=== PATIENT | female | born 1970 | race Caucasian/White ===

== ENCOUNTER → 2019-03-29 16:54 | Outpatient (BNVA) | payer SELFPAY | PROVIDERS: Family Provider Family Medicine; PCP Family Medicine; Referring Provider Nurse Practitioner; Visit Provider Nurse Practitioner | DX: Z76.89 Persons encountering health services in other specified circumstances (principal); E03.9 Hypothyroidism, unspecified | CPT/HCPCS: 84443 ==

== ENCOUNTER 2019-06-18 08:50 | Emergency (ER) | payer SELFPAY ==
[2019-06-18 08:57] VITALS: BP 162/96; PULSE 92; RESP 20; TEMP 36.4; O2SAT 96; BMI 31.3
[2019-06-18 09:09] VITALS: O2SAT 96
--- NOTE | 2019-06-18 09:10 | W.ED.URI ---
HPI - URI/Sore Throat General: Chief Complaint: Upper Respiratory Infection Stated Complaint: COUGH, CONGESTED Time Seen by Provider: 06/18/19 08:52 Source: patient Mode of arrival: ambulatory Limitations: no limitations History of Present Illness: HPI Narrative: Patient is a 48-year-old female who presents to ED today with complaints of cough and congestion over the past few days. Patient states she has a history of asthma and COPD and continues to smoke daily. She states she will get episodes like this annually. Patient is not been running fevers. She has not had any sick contacts or recent travel. MD elicited complaint: cough Pertinent past history: COPD and asthma Onset (ago): day(s) Consistency: constant Severity: mild Description of mucous: clear and yellow Able to tolerate fluids by mouth: Yes Exacerbating factors: nothing Relieving factors: nothing Associated symptoms: Reports no associated symptoms; Deny abdominal pain, chills, chest pain, fever(s), headache(s), nausea or vomiting Treatments prior to arrival: none Review of Systems General: Reports: 10 or more systems reviewed and unremarkable except in HPI and below Const: Denies: fever, chills or body aches Eyes: Denies: change in vision, blurry vision or photophobia Card: Denies: chest pain, palpitations, irregular heart rhythm, edema, swelling of feet/ankles, lightheadedness, syncope, pre-syncope or shortness of breath when lying down Resp: Reports: productive cough and chest congestion; Denies: shortness of breath, non-productive cough, pain on inspiration, change in phlegm color or coughing up blood GI: Denies: abdominal pain, nausea or vomiting Musc: Denies: neck pain or back pain Neuro: Denies: headache PFSH ED PFSH: Social History Smoking and tobacco status: current every day smoker Alcohol intake: never Female Reproductive History: Date of last menstrual period: 02/05/19 Para: 2 Physical Exam Const: COMMON NORMALS: no apparent distress, average body habitus, oriented x3, no limitations, healthy appearing, alert and well nourished HENMT: COMMON NORMALS: normocephalic, head/scalp atraumatic, hearing grossly normal bilaterally, external ears normal, EAC's normal, TM's normal bilaterally, external nose normal, nasal mucous membranes and turbinates normal, moist oral mucous membranes and oropharynx normal HEAD & SCALP: normocephalic and atraumatic FACE & SINUS: normal facial exam and sinuses nontender NOSE: external nose normal and nasal mucous membranes and turbinates normal EXTERNAL EAR: Yes external ears normal EXTERNAL AUDITORY CANAL: EAC's normal TYMPANIC MEMBRANE: TM's normal bilaterally THROAT: posterior oropharynx normal, tonsils normal and uvula midline Eye: COMMON NORMALS: PERRL, EOMs intact bilaterally and conjunctivae normal CONJUNCTIVA: Yes conjunctivae normal PUPIL: Yes PERRL Neck/C-Spine: COMMON NORMALS: no lymphadenopathy Resp: COMMON NORMALS: normal respiratory effort EFFORT & INSPECTION: Yes audible wheezes (SOULEYMANE, LLL, RLL; cleared after duo neb tx) Cardio: COMMON NORMALS: regular rate and regular rhythm RATE: regular rate RHYTHM: regular rhythm Extremity: COMMON NORMALS: normal to inspection Neuro: COMMON NORMALS: oriented x3 SENSORIUM/ORIENTATION: Yes alert Skin: COMMON NORMALS: no rashes or lesions noted GENERAL SKIN EXAM: no rashes or lesions noted Course Vital Signs: Vital signs: Vital Signs Temperature 97.6 F 06/18/19 08:57 Pulse Rate 88 06/18/19 09:41 Respiratory Rate 16 06/18/19 09:39 Blood Pressure 162/96 06/18/19 08:57 Pulse Oximetry 97 06/18/19 09:39 MDM - URI/Sore Throat Imaging Data^: CXR: Radiologist's impression: [address] [address] XRay Report Signed Patient: Katerina Wilkinson Unit #: [id number] : 1970 Age/Sex: 48 / F ADM Date: 06/18/19 Loc: ER Room/Bed: Attending Dr: Ordering Provider/Ordering MD: Eva Mckeon Date of Service: 06/18/19 Procedure(s): XR chest 1V portable [id number] Accession Number(s): [id number] Report Number: [id number] PROCEDURE INFORMATION: Exam: XR Chest, 1 View Exam date and time: 06/18/2019 9:38 AM Age: 48 years old Clinical indication: Cough; Additional info: Cough/congestion TECHNIQUE: Imaging protocol: XR of the chest Views: 1 view. COMPARISON: CR Chest 2 views* [id number] 11/29/2018 3:58 PM FINDINGS: Lungs: Unremarkable. No consolidation. Pleural space: Unremarkable. No pleural effusion. No pneumothorax. Heart/Mediastinum: Unremarkable. No cardiomegaly. Bones/joints: Unremarkable. XR/XR chest 1V portable [id number] IMPRESSION: No acute findings. Dictated By: Valente Meraz MD Signed By: Valente Meraz MD Signed Date/Time: 06/18/19950 DD/ Discharge Plan Discharge Patient Disposition: Home, Self-Care Clinical Impression: Bronchitis Condition: Stable Prescriptions: New prednisone 10 mg tablet 60 mg PO DAILY 5 Days Qty: 30 RF: 0 albuterol sulfate 1.25 mg/3 mL solution for nebulization 1.25 mg INHALATION Q6H PRN (Reason: shortness of breath or wheezing) Qty: 75 RF: 0 doxycycline monohydrate 100 mg capsule 100 mg PO Q12H 10 Days Qty: 20 RF: 0 No Action levothyroxine 150 mcg capsule 150 mcg PO DAILY Qty: 30 RF: 1 Discharge Orders: Discharge Order (Routine); Ordered 06/18/19 Ordered By: Eva Mckeon Referrals: Zita Flores FNP [Primary Care Provider] - Jeane Cee DO [Family Provider] - Discharge Diet: Usual diet Discharge Activity: Increase activity as tolerated Coding Level of Care Code ED Hospital Sales Representative for Chg Jamar
--- NOTE | 2019-06-18 09:19 | XRR_ITS ---
PROCEDURE INFORMATION: Exam: XR Chest, 1 View Exam date and time: 06/18/2019 9:38 AM Age: 48 years old Clinical indication: Cough; Additional info: Cough/congestion TECHNIQUE: Imaging protocol: XR of the chest Views: 1 view. COMPARISON: CR Chest 2 views* [id number] 11/29/2018 3:58 PM FINDINGS: Lungs: Unremarkable. No consolidation. Pleural space: Unremarkable. No pleural effusion. No pneumothorax. Heart/Mediastinum: Unremarkable. No cardiomegaly. Bones/joints: Unremarkable. XR/XR chest 1V portable [id number] IMPRESSION: No acute findings.
[2019-06-18] MEDS: ipratropium-albuterol 3 mL Neb INHALATION (09:38)
[2019-06-18 09:39] VITALS: PULSE 87; RESP 16; O2SAT 97
[2019-06-18 09:41] VITALS: PULSE 88
[2019-06-18 10:30] VITALS: BP 125/79; PULSE 80; O2SAT 99
== END 2019-06-18 10:30 | disposition home or self-care (01) ==
PROVIDERS: Emergency Provider Physician Assistant; Family Provider Family Medicine; PCP Nurse Practitioner
DX: J44.9 Chronic obstructive pulmonary disease, unspecified (principal); J40 Bronchitis, not specified as acute or chronic; F17.200 Nicotine dependence, unspecified, uncomplicated
CPT/HCPCS: 12345; 71045; 94640; 99281; 99283

== ENCOUNTER 2019-07-09 07:03 | Emergency (ER) | payer SELFPAY ==
[2019-07-09 07:08] VITALS: BMI 31.3
[2019-07-09 07:11] VITALS: BP 142/87; PULSE 88; RESP 18; TEMP 36.6; O2SAT 96
--- NOTE | 2019-07-09 07:22 | W.ED.SOB ---
HPI - SOB/Dyspnea General: Chief Complaint: Shortness of Breath/Dyspnea Stated Complaint: SOB Time Seen by Provider: 07/09/19 07:16 Source: patient Mode of arrival: ambulatory Limitations: no limitations History of Present Illness: HPI Narrative: Patient presents with wheezing and mild shortness of breath. Patient has COPD and has ran out of her albuterol solution. Patient appears in mild shortness of breath. Patient appears well. Patient appears in no acute distress. Review of Systems General: Reports: 10 or more systems reviewed and unremarkable except in HPI and below Resp: Reports: shortness of breath and wheezing PFS ED PFSH: Social History Smoking and tobacco status: former smoker Alcohol intake: never Female Reproductive History: Date of last menstrual period: 02/05/19 Para: 2 Physical Exam Const: COMMON NORMALS: no apparent distress and oriented x3 GENERAL APPEARANCE: cooperative HENMT: COMMON NORMALS: normocephalic, TM's normal bilaterally and external nose normal HEAD & SCALP: normal to inspection and normocephalic NOSE: external nose normal TYMPANIC MEMBRANE: TM's normal bilaterally MOUTH: oral and palatal mucosa normal THROAT: posterior oropharynx normal Eye: GENERAL EYE: normal appearance of both eyes Neck/C-Spine: COMMON NORMALS: full ROM Lymph: LYMPHATIC: no lymphadenopathy noted Chest: COMMONS NORMALS: inspection of chest normal Resp: EFFORT & INSPECTION: Yes able to speak in complete sentences and Yes uses accessory muscles AUSCULTATION: wheezes Cardio: COMMON NORMALS: regular rate and regular rhythm RATE: regular rate RHYTHM: regular rhythm GI: COMMON NORMALS: non-tender : COMMON NORMALS: Yes no CVA tenderness BLADDER/KIDNEY EXAM: Yes no CVA tenderness Back/Pelvis: COMMON NORMALS: no CVA tenderness and thoracic and lumbar spine normal to inspection Extremity: COMMON NORMALS: normal to inspection Neuro: COMMON NORMALS: oriented x3 and moves all extremities Psych: COMMON NORMALS: mental status grossly normal and cooperative Skin: COMMON NORMALS: no rashes or lesions noted GENERAL SKIN EXAM: no rashes or lesions noted Course Vital Signs: Vital signs: Vital Signs Temperature 97.8 F 07/09/19 07:11 Pulse Rate 103 H 07/09/19 07:49 Respiratory Rate 20 H 07/09/19 07:44 Blood Pressure 142/87 07/09/19 07:11 Pulse Oximetry 97 07/09/19 07:44 MDM - SOB/Dyspnea MDM Narrative: Medical decision making narrative: Patient comes in today for shortness of breath. Patient usually is able to control any breathing difficulty with albuterol nebulizer solutions. Patient has been without the medication for about 2 days now. Patient appears well. Patient does have wheezing throughout lung garcia. Vital signs were normal. Differential diagnosis includes pneumonia, asthma, COPD. Patient had improvement after treatment with albuterol and ipratropium. Patient was given injection of dexamethasone, will continue with breathing treatment and cover for antibiotic with cephalexin. Patient will also be given a burst of steroid. Reviewed with patient plan with her statement of understanding. Discharge Plan Discharge Patient Disposition: Home, Self-Care Clinical Impression: Acute exacerbation of chronic obstructive airways disease Condition: Stable Prescriptions: New albuterol sulfate 2.5 mg /3 mL (0.083 %) solution for nebulization 2.5 mg INHALATION Q4H PRN (Reason: shortness of breath or wheezing) Qty: 180 RF: 6 ipratropium-albuterol 0.5 mg-3 mg(2.5 mg base)/3 mL solution for nebulization 3 ml INHALATION QID Qty: 180 RF: 6 cephalexin 500 mg capsule 500 mg PO TID 7 Days Qty: 21 RF: 0 prednisone 20 mg tablet 20 mg PO DAILY Qty: 5 RF: 0 No Action levothyroxine 150 mcg capsule 150 mcg PO DAILY Qty: 30 RF: 1 albuterol sulfate 1.25 mg/3 mL solution for nebulization 1.25 mg INHALATION Q6H PRN (Reason: shortness of breath or wheezing) Qty: 75 RF: 0 Referrals: Zita Flores FNP [Primary Care Provider] - Jeane Cee DO [Family Provider] - Discharge Diet: Usual diet Discharge Activity: Increase activity as tolerated Patient Instructions: Chronic Obstructive Pulmonary Disease (ED) Activity Restrictions/Additional Instructions: Drink plenty of water with medications. Use albuterol with ipratropium 4 times a day routinely and tell improvement in symptoms and then use twice daily. Use albuterol as needed for breakthrough wheezing or difficulty breathing. Take cephalexin and prednisone as directed. Continue cessation of smoking. Follow-up with primary care in 1 week. Return to the ER for worsening symptoms or high fever. Coding Level of Care Code ED Branding Machine Tender for Chg Fwd Exam Comprehensive
[2019-07-09] MEDS: ipratropium-albuterol 3 mL Neb INHALATION (07:43)
[2019-07-09 07:44] VITALS: PULSE 81; RESP 20; O2SAT 97
[2019-07-09 07:49] VITALS: PULSE 103
[2019-07-09] MEDS: dexamethasone 10 mg/mL INJ IM (07:54)
[2019-07-09 08:25] VITALS: BP 145/75; PULSE 97; RESP 16; O2SAT 98
== END 2019-07-09 08:26 | disposition home or self-care (01) ==
PROVIDERS: Emergency Provider Nurse Practitioner Family; Family Provider Family Medicine; PCP Nurse Practitioner
DX: J44.1 Chronic obstructive pulmonary disease with (acute) exacerbation (principal); Z87.891 Personal history of nicotine dependence
CPT/HCPCS: 12345; 94640; 96372; 99281; 99283; J1100

== ENCOUNTER 2019-08-01 16:39 | Emergency (ER) | payer SELFPAY ==
--- NOTE | 2019-08-01 16:43 | XR_ITS ---
WS: [id number] CHEST 2 VIEWS HISTORY: sob COMPARISON: 06/18/2019 Lungs: Hyperinflated lungs with changes of mild emphysema. No pneumonia. Normal vasculature. Cardiac size: Normal. Mediastinum/Aorta: Normal mediastinum. Bones: Normal. XR/XR chest 2V* [id number] IMPRESSION: Mild chronic emphysema.
[2019-08-01 16:50] VITALS: BP 161/78; PULSE 95; RESP 18; TEMP 36.4; O2SAT 100; BMI 31.3
--- NOTE | 2019-08-01 16:55 | W.ED.GENADLT ---
HPI - General Adult General: Chief complaint: General Medical Stated complaint: sob/cough Time Seen by Provider: 08/01/19 16:43 Source: patient Mode of arrival: ambulatory Limitations: no limitations History of Present Illness: HPI narrative: 48-year-old female with a history of COPD and was a former smoker. She states she has had bronchitis-like symptoms over the last month. She states she has been on 2 rounds of antibiotics and steroids states she still having wheezing and pain in the left side of her chest when she breathes in. She denies any fevers. She denies any vomiting or diarrhea. Onset (ago): day(s) Associated symptoms: Reports dyspnea; Deny chest pain, headache(s), nausea, rash or vomiting Review of Systems Const: Denies: fever(s), chills, body aches or change in appetite Eyes: Denies: blurry vision or eye discomfort ENMT: Denies: throat pain or dental pain Card: Denies: chest pain Resp: Reports: dyspnea and wheezing GI: Denies: abdominal pain, nausea, vomiting or diarrhea : Denies: dysuria Musc: Denies: neck pain or back pain Skin/Breast: Denies: rash Neuro: Denies: headache(s) Psych: Denies: depression Denys/Lymph: Denies: easy bruising All/Imm: Denies: urticaria PFSH ED PFSH: Medical History (Updated 08/01/19 @ 17:36 by George Franklin MD) Hypothyroid Surgical History History of delivery Family History Grandfather Cancer Grandmother Cancer Other Epilepsy Social History Smoking and tobacco status: former smoker Alcohol intake: never Female Reproductive History: Date of last menstrual period: 02/05/19 Para: 2 Physical Exam Const: COMMON NORMALS: no acute distress, patient oriented x3 and healthy appearing HENMT: COMMON NORMALS: normocephalic and atraumatic HEAD & SCALP: normocephalic and atraumatic Eye: COMMON NORMALS: Equal, round and reactive pupils present and EOMs intact bilaterally PUPIL: Yes Equal, round and reactive pupils present Neck/C-Spine: COMMON NORMALS: full ROM and supple Chest: COMMONS NORMALS: normal inspection of the chest and normal palpation of entire chest wall Resp: COMMON NORMALS: normal respiratory effort, No retractions and No use of accessory muscles AUSCULTATION: wheezes Cardio: COMMON NORMALS: regular rate, regular rhythm and No murmurs present (Cardio) RATE: regular rate RHYTHM: regular rhythm GI: COMMON NORMALS: Normal to inspection, nondistended, normoactive bowel sounds present, Soft to palpation, non-tender and no masses PALPATION: Yes Soft to palpation Extremity: COMMON NORMALS: normal to inspection and full ROM Neuro: COMMON NORMALS: patient oriented x3, moves all extremities and no focal motor deficits Psych: COMMON NORMALS: mental status grossly normal, Normal thought process present and cooperative THOUGHT PROCESS: Normal thought process present Skin: COMMON NORMALS: no rashes or lesions noted and no wounds GENERAL SKIN EXAM: no rashes or lesions noted Course Vital Signs: Vital signs: Vital Signs Temperature 97.6 F 08/01/19 16:50 Pulse Rate 95 08/01/19 17:10 Respiratory Rate 16 08/01/19 17:10 Blood Pressure 161/78 08/01/19 16:50 Pulse Oximetry 96 08/01/19 17:10 MDM - General Adult MDM Narrative: Medical decision making narrative: Patient presents here with COPD exacerbation is well-appearing here. I believe her pain is likely pleuritic in nature. She has no signs of pneumonia. We will give her Decadron Toradol prescribe her Naprosyn for home. She has no signs of pulmonary embolism or cardiac cause. She is to follow-up with Dr. Minh Casas and return if worsening. Imaging Data^: CXR: Attestation: I personally reviewed and interpreted this imaging study as follows: My impression: no acute abnormality Discharge Plan Discharge Patient Disposition: Home, Self-Care Clinical Impression: Asthma exacerbation in COPD Condition: Stable Prescriptions: No Action levothyroxine 150 mcg capsule 150 mcg PO DAILY Qty: 30 RF: 1 albuterol sulfate 2.5 mg /3 mL (0.083 %) solution for nebulization 2.5 mg INHALATION Q4H PRN (Reason: shortness of breath or wheezing) Qty: 180 RF: 6 ipratropium-albuterol 0.5 mg-3 mg(2.5 mg base)/3 mL solution for nebulization 3 ml INHALATION QID Qty: 180 RF: 6 prednisone 20 mg tablet 20 mg PO DAILY Qty: 5 RF: 0 albuterol sulfate 1.25 mg/3 mL solution for nebulization 1.25 mg INHALATION Q6H PRN (Reason: shortness of breath or wheezing) Qty: 75 RF: 0 Discharge Orders: Discharge Order (Routine); Ordered 08/01/19 Ordered By: George Franklin Referrals: Zita Flores FNP [Primary Care Provider] - Jeane Cee DO [Family Provider] - Radha Rodgers MD [Physician] - 4-7 days Discharge Diet: Advance as tolerated Discharge Activity: Resume usual activity Patient Instructions: Emphysema (ED) Coding Level of Care Code ED Document Management Consultant for Mauriciog Fwd Exam Comprehensive
[2019-08-01 17:04] VITALS: PULSE 95; RESP 16; O2SAT 96
[2019-08-01] MEDS: ipratropium-albuterol 3 mL Neb INHALATION (17:04)
[2019-08-01 17:10] VITALS: PULSE 95; RESP 16; O2SAT 96
[2019-08-01] MEDS: HYDROcodone-acetaminophen 7.5-325 mg Tablet 1 TAB PO (17:22)
[2019-08-01] MEDS: ketorolac 30 mg/mL INJ IM (18:02)
[2019-08-01] MEDS: dexamethasone 10 mg/mL INJ IM (18:03)
--- NOTE | 2019-08-02 15:06 | DCPLANNER ---
manager of regulatory affairs had message to schedule a follow up appointment for patient with [facility]. manager of regulatory affairs called [facility], spoke with Kristy, gave clinic patients information. manager of regulatory affairs was told that patients information would be printed and reviewed. Clinic will call patient with appointment information.
--- NOTE | 2019-08-04 14:03 | DCPLANNER ---
Patient has a follow up appointment scheduled for , August 17, [address] Rodgers at [facility]. Clinic will call patient with appointment information.
--- NOTE | 2019-08-24 12:48 | DCPLANNER ---
Patient did attend follow up appointment scheduled for 08.17.19 with [facility].
== END 2019-08-01 18:16 | disposition home or self-care (01) ==
LOC: ER 17:42
PROVIDERS: Emergency Provider Emergency Medicine; Family Provider Family Medicine; PCP Nurse Practitioner
DX: J44.1 Chronic obstructive pulmonary disease with (acute) exacerbation (principal); Z87.891 Personal history of nicotine dependence
CPT/HCPCS: 12345; 71046; 94640; 99281; 99283; J1100; J1885

== ENCOUNTER 2019-08-05 09:45 | Emergency (ER) | payer SELFPAY ==
[2019-08-05 09:50] VITALS: BMI 31.3
[2019-08-05 09:54] VITALS: BP 143/110; PULSE 95; RESP 20; TEMP 36.8; O2SAT 98
--- NOTE | 2019-08-05 10:12 | ECG_ITS ---
Measurements Intervals [place] Rate: 84 P: 79 LA: 150 QRS: 81 QRSD: 93 T: 63 QT: 345 QTc: 410 SINUS RHYTHM LOW QRS VOLTAGE IN PRECORDIAL LEADS [QRS DEFLECTION < 1.0 mV IN CHEST LEADS] No previous ECG available for comparison Electronically Signed On 08-06-2019 7:47:17 CDT by Valente Campoverde M.D. [email or web address]
--- NOTE | 2019-08-05 10:15 | XRR_ITS ---
PROCEDURE INFORMATION: Exam: XR Chest, 2 Views Exam date and time: 08/05/2019 10:32 AM Age: 48 years old Clinical indication: Chest wall pain; Additional info: Cp TECHNIQUE: Imaging protocol: XR of the chest Views: 2 views. COMPARISON: CR XR chest 2V* [id number] 08/01/2019 5:13 PM FINDINGS: Lungs: Unremarkable. No consolidation. Pleural space: Unremarkable. No pleural effusion. No pneumothorax. Heart/Mediastinum: Unremarkable. No cardiomegaly. Bones/joints: Unremarkable. XR/XR chest 2V* [id number] IMPRESSION: No acute findings.
[2019-08-05 10:55] LABS: Basophils % 0.3 %; Eosinophils # 0.1 10^3/uL (0.0-0.8); Eosinophils % 1.4 %; Hematocrit 45.5 % (37.0-47.0); Hemoglobin 14.8 g/dL (11.5-15.3); Lymphocytes % 20.9 %; Mean Corpuscular HGB Conc 32.5 g/dL (30.0-36.0); Mean Corpuscular Hemoglobin 31.3 pg (28.0-34.0); Mean Corpuscular Volume 96.2 fL (81-99); Mean Platelet Volume 9.8 fL (7.4-10.4); Monocytes # 0.7 10^3/uL (0.2-0.9); Monocytes % 7.2 %; Neutrophils # 6.7 10^3/uL (1.8-7.7); Neutrophils % 69.7 %; Nucleated Red Blood Cells % 0 %; Platelet Count 307 10^3/cmm (130-400); Red Blood Count 4.73 10^6/uL (4.1-5.3); Red Cell Distribution Width 12.3 % (12.1-15.1); White Blood Count 9.6 10^3/uL (4.0-10.0)
[2019-08-05 11:04] LABS: INR 0.94 (0.8-1.2)
[2019-08-05 11:07] LABS: D Dimer 0.65 ug/mIFEU (0-0.59)
[2019-08-05 11:12] VITALS: RESP 20; O2SAT 95
[2019-08-05 11:12] LABS: Alanine Aminotransferase 21 U/L (0-33); Albumin Level 4.3 g/dL (3.5-5.2); Alkaline Phosphatase 78 IU/L (35-105); Anion Gap 16.7 (5-19); Aspartate Amino Transferase 17 U/L (0-32); Blood Urea Nitrogen 12 mg/dL (6-20); Calcium 9.2 mg/dL (8.5-10.5); Carbon Dioxide 23 mmol/L (22-29); Chloride 102 mmol/L (98-107); Globulin 2.6 g/dL (1.3-4.6); Glomerular Filtration Rate 107.6 mL/min (90-130); Glucose 87 mg/dL (65-115); Osmolality Calculated 279 mOsm/kg (285-295); Potassium 4.7 mmol/L (3.5-5.1); Sodium 137 mmol/L (136-145); Total Bilirubin 0.4 mg/dL (0.15-1.2); Total Protein 6.9 g/dL (6.6-8.7)
[2019-08-05] MEDS: HYDROmorphone 1 mg/mL INJ 1 mL 2 MG IM (11:12)
[2019-08-05 11:13] LABS: Troponin T (5th) Once 6 ng/mL (0-10)
--- NOTE | 2019-08-05 11:30 | ED_ITS ---
HPI - SOB/Dyspnea General: Chief Complaint: Shortness of Breath/Dyspnea Stated Complaint: hurts to breathe Time Seen by Provider: 08/05/19 10:01 History of Present Illness: HPI Narrative: 48-year-old female with pleuritic left-sided chest pain ongoing for a couple weeks. She says it is getting worse. She has been treated with steroids and anti-inflammatories without improvement. She has a history of asthma, and has been wheezing as well, although she states she is no longer short of breath necessarily and is improved from that. The pain now has persisted. No fever. Very little cough. MD elicited complaint: chest pain Pertinent past history: asthma Onset (ago): week(s) Timing: constant and progressively worsening Severity: moderate Exacerbating factors: inspiration Relieving factors: nothing Known history of: asthma Associated symptoms: Reports chest pain; Deny cough, dizziness, fever(s) or vomiting Review of Systems Const: Denies: fever(s) or chills Eyes: Denies: change in vision or blurry vision ENMT: Denies: sinus pain Card: Reports: chest pain Resp: Reports: non-productive cough; Denies: dyspnea, productive cough or wheezing GI: Denies: vomiting : Denies: dysuria or hematuria Musc: Denies: neck pain, back pain, joint redness or joint warmth Skin/Breast: Denies: rash, pruritus or erythema Neuro: Denies: headache(s), dizziness, vertigo, confusion or seizure-like activity Psych: Denies: anxiety PFSH ED PFSH: Medical History (Updated 08/05/19 @ 14:21 by Farhat Tripp DO) Hypothyroid Surgical History History of delivery Family History Grandfather Cancer Grandmother Cancer Other Epilepsy Social History Smoking and tobacco status: former smoker Alcohol intake: never Female Reproductive History: Date of last menstrual period: 02/05/19 Para: 2 Physical Exam Const: GENERAL APPEARANCE: well developed ORIENTATION/CONSCIOUSNESS: Yes oriented to person, Yes oriented to place and Yes oriented to time HENMT: COMMON NORMALS: normocephalic, external ears normal and Normal external nose present HEAD & SCALP: normocephalic FACE & SINUS: normal facial exam NOSE: Normal external nose present and No nasal discharge present EXTERNAL EAR: Yes external ears normal MOUTH: tongue normal TEETH & GINGIVA: no abnormal tooth and associated gingiva THROAT: posterior oropharynx normal; no peritonsillar mass Eye: COMMON NORMALS: Equal, round and reactive pupils present, EOMs intact bilaterally and conjunctivae normal EYELID: eyelids normal CONJUNCTIVA: Yes conjunctivae normal PUPIL: Yes Equal, round and reactive pupils present Neck/C-Spine: GENERAL: No tracheal deviation Chest: COMMONS NORMALS: normal inspection of the chest CHEST: Yes tenderness (Left side, midaxillary line) Resp: COMMON NORMALS: clear to auscultation bilaterally EFFORT & INSPECTION: No tachypneic, No respiratory distress, No retractions, No uses accessory muscles and No tracheal deviation AUSCULTATION: clear to auscultation bilaterally, no rhonchi, no wheezes and lung sounds not diminished Cardio: COMMON NORMALS: regular rate and regular rhythm RATE: regular rate RHYTHM: regular rhythm HEART SOUNDS: no murmurs PERIPHERAL PULSES: radial pulses present GI: INSPECTION: No abdominal distension AUSCULTATION: No Hyperactive bowel sounds present and No Hypoactive bowel sounds present PALPATION: No Guarding due to palpation present (GI) and No Rigid due to palpation PERCUSSION: no dullness to percussion and no tympanic to percussion Neuro: SENSORIUM/ORIENTATION: Yes oriented to person, Yes oriented to place and Yes oriented to time Psych: COMMON NORMALS: mental status grossly normal Skin: COMMON NORMALS: no rashes or lesions noted GENERAL SKIN EXAM: no rashes or lesions noted Course Vital Signs: Vital signs: Vital Signs Temperature 98.3 F 08/05/19 09:54 Pulse Rate 89 08/05/19 14:54 Respiratory Rate 18 08/05/19 14:54 Blood Pressure 145/68 08/05/19 14:54 Pulse Oximetry 96 08/05/19 14:54 MDM - SOB/Dyspnea MDM Narrative: Medical decision making narrative: 48-year-old female with left-sided pleuritic chest pain, resistant to treatment. Her d-dimer is elevated. CTA is pending CTA is negative for pulmonary embolus, dissection, etc. She will be allowed home with treatment for pleuritic chest pain. Lab Data: Labs: Lab Results 08/05/19 08/05/19 08/05/19 Range/Units 10:44 10:44 10:44 WBC 9.6 (4.0-10.0) 10^3/ uL RBC 4.73 (4.1-5.3) 10^6/u L Hgb 14.8 (11.5-15.3) g/dL Hct 45.5 (37.0-47.0) % MCV 96.2 (81-99) fL MCH 31.3 (28.0-34.0) pg MCHC 32.5 (30.0-36.0) g/dL RDW 12.3 (12.1-15.1) % Plt Count 307 (130-400) 10^3/c mm MPV 9.8 (7.4-10.4) fL Neut % (Auto) 69.7 % Lymph % (Auto) 20.9 % [place] % (Auto) 7.2 % Eos % (Auto) 1.4 % Baso % (Auto) 0.3 % Neut # (Auto) 6.7 (1.8-7.7) 10^3/u L Lymph # (Auto) 2.0 (0.8-4.8) 10^3/u L [place] # (Auto) 0.7 (0.2-0.9) 10^3/u L Eos # (Auto) 0.1 (0.0-0.8) 10^3/u L Baso # (Auto) 0.0 (0.0-0.1) 10^3/u L Nucleated RBC % (a uto) 0 % Nucleated RBCs # 0.0 /100WBC PT 12.80 (10.5-13.3) SECO NDS INR 0.94 (0.8-1.2) D-Dimer 0.65 H (0-0.59) ug/mIFE U Sodium 137 (136-145) mmol/L Potassium 4.7 (3.5-5.1) mmol/L Chloride 102 (98-107) mmol/L Carbon Dioxide 23 (22-29) mmol/L Anion Gap 16.7 (5-19) BUN 12 (6-20) mg/dL Creatinine 0.6 (0.5-0.9) mg/dL GFR Calculation 107.6 (90-130) mL/min Glucose 87 (65-115) mg/dL Calculated Osmolal ity 279 L (285-295) mOsm/k g Calcium 9.2 (8.5-10.5) mg/dL Total Bilirubin 0.4 (0.15-1.2) mg/dL AST 17 (0-32) U/L ALT 21 (0-33) U/L Alkaline Phosphata se 78 (35-105) IU/L Troponin T Gen 5 n g/L (0-10) ng/mL Total Protein 6.9 (6.6-8.7) g/dL Albumin 4.3 (3.5-5.2) g/dL Globulin 2.6 (1.3-4.6) g/dL // Range/Units 10:44 WBC (4.0-10.0) 10^3/ uL RBC (4.1-5.3) 10^6/u L Hgb (11.5-15.3) g/dL Hct (37.0-47.0) % MCV (81-99) fL MCH (28.0-34.0) pg MCHC (30.0-36.0) g/dL RDW (12.1-15.1) % Plt Count (130-400) 10^3/c mm MPV (7.4-10.4) fL Neut % (Auto) % Lymph % (Auto) % [place] % (Auto) % Eos % (Auto) % Baso % (Auto) % Neut # (Auto) (1.8-7.7) 10^3/u L Lymph # (Auto) (0.8-4.8) 10^3/u L [place] # (Auto) (0.2-0.9) 10^3/u L Eos # (Auto) (0.0-0.8) 10^3/u L Baso # (Auto) (0.0-0.1) 10^3/u L Nucleated RBC % (a uto) % Nucleated RBCs # /100WBC PT (10.5-13.3) SECO NDS INR (0.8-1.2) D-Dimer (0-0.59) ug/mIFE U Sodium (136-145) mmol/L Potassium (3.5-5.1) mmol/L Chloride (98-107) mmol/L Carbon Dioxide (22-29) mmol/L Anion Gap (5-19) BUN (6-20) mg/dL Creatinine (0.5-0.9) mg/dL GFR Calculation (90-130) mL/min Glucose (65-115) mg/dL Calculated Osmolal ity (285-295) mOsm/k g Calcium (8.5-10.5) mg/dL Total Bilirubin (0.15-1.2) mg/dL AST (0-32) U/L ALT (0-33) U/L Alkaline Phosphata se (35-105) IU/L Troponin T Gen 5 n g/L 6 (0-10) ng/mL Total Protein (6.6-8.7) g/dL Albumin (3.5-5.2) g/dL Globulin (1.3-4.6) g/dL Discharge Plan Discharge Patient Disposition: Home, Self-Care Clinical Impression: Pleuritic chest pain Condition: Stable Prescriptions: [place] 7.5-325 mg tablet 1 tab PO Q6H PRN (Reason: pain) Qty: 10 RF: 0 No Action levothyroxine 150 mcg capsule 150 mcg PO DAILY Qty: 30 RF: 1 albuterol sulfate 2.5 mg /3 mL (0.083 %) solution for nebulization 2.5 mg INHALATION Q4H PRN (Reason: shortness of breath or wheezing) Qty: 180 RF: 6 ipratropium-albuterol 0.5 mg-3 mg(2.5 mg base)/3 mL solution for nebulization 3 ml INHALATION QID Qty: 180 RF: 6 naproxen 250 mg Tablet 250 mg PO BID PRN (Reason: Pain) RF: 0 ibuprofen 200 mg Tablet 200 mg PO Q6H PRN (Reason: Pain) RF: 0 albuterol sulfate 1.25 mg/3 mL solution for nebulization 1.25 mg INHALATION Q6H PRN (Reason: shortness of breath or wheezing) Qty: 75 RF: 0 Discharge Orders: Discharge Order (Routine); Ordered 08/05/19 Ordered By: Farhat Tripp Referrals: Flores,Zita, [employer] SALESPERSON [Primary Care Provider] - 4-7 days Jeane Cee DO [Family Provider] - Discharge Activity: Increase activity as tolerated Patient Instructions: Chest Pain - Chest Wall Activity Restrictions/Additional Instructions: Continue the medications you are currently taking, as they can improve the condition. Take pain medication prescribed for breakthrough pain. Some patients require physical therapy. Follow-up with your doctor. Return for worsening shortness of breath, fever, cough, other concerning symptoms. Discharge Date/Time: 08/05/19 14:30 Coding Level of Care Code ED Program Project Analyst for Chg Fwd Exam Comprehensive
--- NOTE | 2019-08-05 11:36 | CTR_ITS ---
PROCEDURE INFORMATION: Exam: CT Angiography Chest With Contrast Exam date and time: 08/05/2019 12:53 PM Age: 48 years old Clinical indication: Left-sided chest pain; Patient HX: C/O worsening L sided cp x 2 weeks TECHNIQUE: Imaging protocol: Computed tomographic angiography of the chest with intravenous contrast. 3D rendering: MIP and/or 3D reconstructed images were created by the technologist. Radiation optimization: All CT scans at this facility use at least one of these dose optimization techniques: automated exposure control; mA and/or kV adjustment per patient size (includes targeted exams where dose is matched to clinical indication); or iterative reconstruction. Contrast material: OMNI 350; Contrast volume: 95 ml; Contrast route: 20G; COMPARISON: CR XR chest 2V* [id number] 08/05/2019 10:29 AM RADIATION DOSE METRICS: Total DLP: 603.68 mGy-cm FINDINGS: Pulmonary arteries: Normal. No pulmonary emboli. Aorta: Unremarkable. No aortic aneurysm. No aortic dissection. Lungs: Unremarkable. No consolidation. No masses. Pleural space: Unremarkable. No pneumothorax. No pleural effusion. Heart: Unremarkable. No cardiomegaly. No pericardial effusion. Lymph nodes: Unremarkable. No enlarged lymph nodes. Bones/joints: There is a partially visualized fracture through the left L2 transverse process of unknown chronicity. There are degenerative changes in the visualized spine. Soft tissues: Unremarkable. CT/CT angio chest PE protcl [id number] IMPRESSION: 1. There is a partially visualized fracture through the left L2 transverse process of unknown chronicity. 2. No evidence for pulmonary embolus. Radiation Dose CTDIVOL = (mGy): DLP = 603.68 (mGy-cm)
[2019-08-05] MEDS: iohexol 350 mg/mL 100 mL Btl IV (13:14)
[2019-08-05 14:54] VITALS: BP 145/68; PULSE 89; RESP 18; O2SAT 96
== END 2019-08-05 14:30 | disposition home or self-care (01) ==
PROVIDERS: Emergency Provider Emergency Medicine; Family Provider Family Medicine; PCP Nurse Practitioner
DX: R07.81 Pleurodynia (principal); Z87.891 Personal history of nicotine dependence
CPT/HCPCS: 12345; 36415; 71046; 71275; 80053; 84484; 85025; 85378; 85610; 93005; 96372; 99283; 99284; J1170; Q9967

== ENCOUNTER → 2020-02-26 12:48 | Outpatient (BNVA) | payer OTHER, SELFPAY | PROVIDERS: Family Provider Family Medicine; Visit Provider Nurse Practitioner Family | DX: Z20.828 Contact with and (suspected) exposure to other viral communicable diseases (principal) | CPT/HCPCS: 87635 ==

== ENCOUNTER → 2020-11-29 08:45 | Outpatient (BNVA) | payer MEDICAID, SELFPAY | PROVIDERS: Family Provider Family Medicine; PCP Family Medicine Adult Medicine; Visit Provider Family Medicine Adult Medicine | DX: E03.9 Hypothyroidism, unspecified (principal); J44.9 Chronic obstructive pulmonary disease, unspecified; Z86.16 Personal history of COVID-19; E66.9 Obesity, unspecified; Z68.32 Body mass index [BMI] 32.0-32.9, adult; F17.210 Nicotine dependence, cigarettes, uncomplicated; Z71.89 Other specified counseling | CPT/HCPCS: 36415; 84443 ==

== ENCOUNTER 2021-12-17 04:43 | Emergency (ER) | payer BC, MEDICAID, SELFPAY ==
[2021-12-17 04:46] VITALS: BMI 32.8
--- NOTE | 2021-12-17 04:47 | W.ED.SEIZURE ---
HPI - Seizure General: Chief Complaint: Seizure Stated Complaint: LUX/Possible Seizure Time Seen by Provider: 12/17/21 04:47 History of Present Illness: HPI Narrative: Ms. Wilkinson is a 50-year-old lady with history of COPD, tobacco abuse, thyroid disorder, hypertension, obesity who presents to the emergency department due to possible seizure-like activity. She reports a 4-day history of subacute onset of headache which is primarily in the back of her head and has been persistent. Associated with photophobia and sonophobia. This evening she got up and felt so unsteady that she fell to the ground and questionably had a seizure. Denies history of frequent headaches. Has had associated generalized malaise. History of 1 seizure in her 20s though circumstances are unclear. Intensity of headache is moderate to severe. No other specific changes in health, exacerbating, or alleviating factors identified. Supplemental information provided by EMS is that the patient endorsed delta 8 THC use and there was various other drug paraphernalia on the property. Onset (ago): day(s) Description of Episode: tonic-clonic movement Seizure History: Yes Place: Home Possible Precipitating Event: drug use Review of Systems General: Reports: 10 or more systems reviewed and unremarkable except in HPI and below PFSH ED PFSH: Medical History Cigarette smoker COPD (chronic obstructive pulmonary disease) with chronic bronchitis Elevated blood pressure reading History of COVID-19 Hypothyroid Obesity (BMI 30-39.9) Surgical History History of delivery Family History Grandfather Cancer Grandmother Cancer Other Epilepsy Social History Quit status (tobacco): considering quitting Alcohol intake: current Alcohol intake frequency: holidays/special occasions only Lives independently: Yes Household members: spouse and children Marital status: Number of children: 2 Number of grandchildren: 3 Current occupational status: employed Current occupation: [employer] History of recent travel: Yes ([place] ) Out of state: Yes Current gender identity: Female Female Reproductive History: Date of last menstrual period: 02/05/19 Para: 2 Spontaneous abortions: No Physical Exam Const: COMMON NORMALS: patient oriented x3 and alert GENERAL APPEARANCE: cooperative, well developed and disheveled HENMT: COMMON NORMALS: normocephalic and atraumatic HEAD & SCALP: normocephalic and atraumatic Eye: COMMON NORMALS: conjunctivae normal CONJUNCTIVA: Yes conjunctivae normal SCLERA: sclerae normal Neck/C-Spine: COMMON NORMALS: supple GENERAL: Yes trachea midline Resp: COMMON NORMALS: normal respiratory effort EFFORT & INSPECTION: Yes able to speak in complete sentences Cardio: COMMON NORMALS: regular rate and regular rhythm RATE: regular rate RHYTHM: regular rhythm GI: COMMON NORMALS: Soft to palpation PALPATION: Yes Soft to palpation and No Tenderness to palpation present (GI) PERCUSSION: normal to percussion Extremity: GENERAL: Yes normal exam except as noted and No edema Neuro: COMMON NORMALS: patient oriented x3, CN's II-XII intact bilaterally, moves all extremities, no focal motor deficits and no sensory deficits noted SENSORIUM/ORIENTATION: Yes alert and No Orientation impaired Psych: COMMON NORMALS: mental status grossly normal and Normal thought process present THOUGHT PROCESS: Normal thought process present Course ED course: - Patient was seen and evaluated by me at bedside - Patient placed on cardiac monitors, IV access obtained - Initial evaluation notable for exam as above. Nonfocal neurologic exam though patient is somewhat somnolent. - Labs and xrays personally interpreted by me - Headache cocktail ordered - Labs notable for no leukocytosis, normal hemoglobin. Metabolic panel without acute electrolyte derangement. TSH elevated with free T4 pending. Prolactin 71.73. No evidence of urinary tract infection. UDS positive for amphetamines and THC. - Imaging notable for subarachnoid hemorrhage. Chest x-ray with no lobar consolidation or pneumothorax. - Upon serial reexamination after treatment the patient was similar - Based on patient history, evaluation, and testing as interpreted the most likely cause of the patient's condition is subarachnoid hemorrhage. - The results of ED evaluation were discussed with the patient and patient's including plan for transfer due to requirement for level of care not available if discharged to prevent significant worsening/deterioration. - Patient accepted as ED to ED transfer by Dr. Colorado at [facility] in [place] - Due to weather air EMS is unavailable and the patient requires expeditious transfer for neurosurgical evaluation Note: Click bubbles or prepopulated garcia in note writing are used for assistance with data collection and billing and are inherently more limited than narrative and other text portions of this note. Please use narrative for additional clinical history and defer to narrative/free test for any case of contradictory information. If information appears in only free text or click bubble it should be considered present or absent as reported. Please contact note proposal writer for clarifications of clinical information or contradictory information. MDM is a brief summary, contradictory or erroneous seeming information should be clarified and full note should be reviewed. Vital Signs: Vital signs: Vital Signs Temperature 96.6 F L 12/17/21 04:57 Pulse Rate 74 12/17/21 06:10 Respiratory Rate 17 12/17/21 06:10 Blood Pressure 148/81 12/17/21 06:10 Pulse Oximetry 94 12/17/21 06:10 Oxygen Delivery Me thod 12/17/21 06:10 MDM - Seizure MDM Narrative Medical decision making narrative: 50-year-old lady presenting with 4-day history of headache and questionable seizure activity this evening. Patient has nonfocal neurologic exam though is somnolent. Found to have subarachnoid hemorrhage and emergently transferred for neurosurgical evaluation to [facility] in [facility]. Medical Records Attestation: I reviewed the patient's medical records. Lab Data Attestation: I reviewed the patient's lab results. Result diagrams: 12/17/21 04:30 12/17/21 04:30 Labs: Radiology Impressions Chest X-Ray 12/17/21 04:52 IMPRESSION: No acute cardiopulmonary abnormality. Head CT 12/17/21 04:52 IMPRESSION: Significant subarachnoid hemorrhage as described above. Recommend CTA for evaluation of intracranial aneurysm. ADDENDUM: 12/17/21 0555 THIS REPORT CONTAINS FINDINGS THAT MAY BE CRITICAL TO PATIENT CARE. The findings were verbally communicated via telephone conference with Art Andrews at 5:53 AM CDT on 12/17/2021. The findings were acknowledged and understood. Laboratory Results WBC 7.1 10^3/uL (4.0-10.0) 12/17/21 04:30 RBC 4.60 10^6/uL (4.1-5.3) 12/17/21 04:30 Hgb 15.2 g/dL (11.5-15.3) 12/17/21 04:30 Hct 44.7 % (37.0-47.0) 12/17/21 04:30 MCV 97.2 fl (81-99) 12/17/21 04:30 MCH 33.0 pg (28.0-34.0) 12/17/21 04:30 MCHC 34.0 g/dL (30.0-36.0) 12/17/21 04:30 RDW 12.3 % (12.1-15.1) 12/17/21 04:30 Plt Count 273 10^3/cmm (130-400) 12/17/21 04:30 MPV 10.2 fL (7.4-10.4) 12/17/21 04:30 Neut % (Auto) 53.0 % 12/17/21 04:30 Lymph % (Auto) 33.3 % 12/17/21 04:30 [place] % (Auto) 9.8 % 12/17/21 04:30 Eos % (Auto) 3.1 % 12/17/21 04:30 Baso % (Auto) 0.4 % 12/17/21 04:30 Neut # (Auto) 3.78 10^3/uL (1.8-7.7) 12/17/21 04:30 Lymph # (Auto) 2.4 10^3/uL (0.8-4.8) 12/17/21 04:30 [place] # (Auto) 0.7 10^3/uL (0.2-0.9) 12/17/21 04:30 Eos # (Auto) 0.2 10^3/uL (0.0-0.8) 12/17/21 04:30 Baso # (Auto) 0.0 10^3/uL (0.0-0.1) 12/17/21 04:30 Nucleated RBC % (auto) 0 % 12/17/21 04:30 Nucleated RBCs # 0.0 /100WBC 12/17/21 04:30 PT 11.70 SECONDS (12.1-14.9) L 12/17/21 04:30 INR 0.83 (0.8-1.2) 12/17/21 04:30 APTT 26.0 SECONDS (23.9-36.7) 12/17/21 04:30 Sodium 139 mmol/L (136-145) 12/17/21 04:30 Potassium 3.9 mmol/L (3.5-5.1) 12/17/21 04:30 Chloride 103 mmol/L (98-107) 12/17/21 04:30 Carbon Dioxide 25 mmol/L (22-29) 12/17/21 04:30 Anion Gap 14.9 (5-19) 12/17/21 04:30 BUN 15 mg/dL (6-20) 12/17/21 04:30 Creatinine 0.7 mg/dL (0.5-0.9) 12/17/21 04:30 GFR Calculation 89.3 mL/min (90-130) L 12/17/21 04:30 Glucose 131 mg/dL (65-115) H 12/17/21 04:30 POC Glucose 140 mg/dL (70-110) H 12/17/21 05:00 Calculated Osmolality 291 mOsm/kg (285-295) 12/17/21 04:30 Calcium 8.9 mg/dL (8.5-10.5) 12/17/21 04:30 Total Bilirubin 0.2 mg/dL (0.15-1.2) 12/17/21 04:30 AST 15 U/L (0-32) 12/17/21 04:30 ALT 18 U/L (0-33) 12/17/21 04:30 Alkaline Phosphatase 104 U/L (35-105) 12/17/21 04:30 C-Reactive Protein 3.1 mg/L (0.0-4.9) 12/17/21 04:30 Total Protein 7.4 g/dL (6.6-8.7) 12/17/21 04:30 Albumin 4.0 g/dL (3.5-5.2) 12/17/21 04:30 Globulin 3.4 g/dL (1.3-4.6) 12/17/21 04:30 TSH 19.56 uIU/mL (0.27-4.20) H 12/17/21 04:30 Free T4 1.25 ng/dL (0.82-1.77) 12/17/21 04:30 Prolactin 71.73 ng/mL (4.8-23.3) H 12/17/21 04:36 Urine Color Yellow (Yellow) 12/17/21 05:50 Urine Appearance Clear (CLEAR) 12/17/21 05:50 Urine pH 7 (5-7) 12/17/21 05:50 Ur Specific [place] 1.010 (1.005-1.030) 12/17/21 05:50 Urine Protein 1+ (Negative) H 12/17/21 05:50 Urine Glucose (UA) Norm (Normal) 12/17/21 05:50 Urine Ketones Negative (Negative) 12/17/21 05:50 Urine Blood Neg (Negative) 12/17/21 05:50 Urine Nitrate Negative (Negative) 12/17/21 05:50 Urine Bilirubin Neg (Negative) 12/17/21 05:50 Urine Urobilinogen Norm mg/dL (Negative) 12/17/21 05:50 Ur Leukocyte Esterase Negative (Negative) 12/17/21 05:50 Urine RBC None /hpf (0-2) 12/17/21 05:50 Urine WBC None /hpf (0-5) 12/17/21 05:50 Ur Squamous Epith Cells None /hpf (0-5) 12/17/21 05:50 Amorphous Sediment Not Reportable 12/17/21 05:50 Urine Bacteria Trace /hpf (NONE) 12/17/21 05:50 Salicylates 0.4 mg/dL (3-10) L 12/17/21 04:30 Urine Opiates Screen Negative ng/mL (Negative) 12/17/21 05:50 Acetaminophen < 5.0 ug/mL (10-30) L 12/17/21 04:30 Ur Barbiturates Screen Negative ng/mL (Negative) 12/17/21 05:50 Ur Phencyclidine Scrn Negative ng/mL (Negative) 12/17/21 05:50 Ur Amphetamines Screen Positive ng/mL (Negative) H 12/17/21 05:50 U Benzodiazepines Scrn Negative ng/mL (Negative) 12/17/21 05:50 Urine Cocaine Screen Negative ng/mL (Negative) 12/17/21 05:50 U Marijuana (THC) Screen Positive ng/mL (Negative) H 12/17/21 05:50 Ethyl Alcohol < 10 mg/dL (0-10) 12/17/21 04:30 Critical Care Time Critical Care Time: Critical Care Time: Yes Total Critical Care Time: 60 Attestation: Due to a high probability of clinically significant, possibly life threatening deterioration, the patient required my highest level of attention and preparedness to intervene emergently and I personally spent this critical care time directly and personally managing the patient. This critical care time included obtaining a history; examining the patient; pulse oximetry; ordering and review of laboratory and imaging studies; arranging urgent treatment with development of a management plan; evaluation of patient's response to treatment; frequent reassessment; and, discussions with other providers as applicable. It was exclusive of separately billable procedures. Primary system involved is neurovascular Discharge Plan Discharge Patient Disposition: Transfer to ED Clinical Impression: Subarachnoid hemorrhage, Headache, Seizure-like activity Condition: Critical Prescriptions: No Action prednisone 20 mg tablet 20 mg PO DAILY 5 Days Qty: 15 0RF ibuprofen 600 mg tablet 600 mg PO Q8H PRN (Reason: pain) Qty: 30 0RF levothyroxine [Euthyrox] 150 mcg tablet 150 mcg PO DAILY 90 Days Qty: 90 3RF ibuprofen 200 mg Tablet 200 mg PO Q6H PRN (Reason: Pain) Referrals: Kyle Espinosa MD [Primary Care Provider] - Discharge Diet: Usual diet Discharge Activity: Limit activity as instructed Coding Level of Care Code ED Passenger Flagman for Chg Fwd Exam Comprehensive
[2021-12-17 04:50] VITALS: BP 158/98; PULSE 82; RESP 16; O2SAT 94
--- NOTE | 2021-12-17 04:52 | CTR_ITS ---
PROCEDURE INFORMATION: Exam: CT Head Without Contrast Exam date and time: 12/17/2021 5:35 AM Age: 50 years old Clinical indication: Pain; Syncope and collapse; Patient HX: Family states patient C/O headache for two days and had witnessed collapse onto floor at home with possible seizure activity this a. M. ; Additional info: ? Seizure, severe headache TECHNIQUE: Imaging protocol: Computed tomography of the head without contrast. Radiation optimization: All CT scans at this facility use at least one of these dose optimization techniques: automated exposure control; mA and/or kV adjustment per patient size (includes targeted exams where dose is matched to clinical indication); or iterative reconstruction. COMPARISON: No relevant prior studies available. RADIATION DOSE METRICS: Total DLP (mGy-cm): 1048.48 FINDINGS: Brain: Significant subarachnoid hemorrhage in the basal cisterns extending to the sylvian fissures, medial frontal, temporal and parietal lobes. No mass effect. No large territorial ischemic infarct. Cerebral ventricles: The ventricles are within normal limits. No interventricular hemorrhage. Paranasal sinuses: The visualized sinuses are unremarkable. Mastoid air cells: The visualized mastoid air cells are well aerated. Bones/joints: The osseous structures are intact. Soft tissues: Unremarkable. CT/CT head wo con* [id number] IMPRESSION: Significant subarachnoid hemorrhage as described above. Recommend CTA for evaluation of intracranial aneurysm.
--- NOTE | 2021-12-17 04:52 | XRR_ITS ---
PROCEDURE INFORMATION: Exam: XR Chest Exam date and time: 12/17/2021 4:57 AM Age: 50 years old Clinical indication: Other: Possible seizure. ; Additional info: AMS, ? seizure TECHNIQUE: Imaging protocol: Radiologic exam of the chest. Views: 1 view. COMPARISON: CR XR chest 2V* [id number] 08/05/2019 10:29 AM FINDINGS: Lungs: The lung parenchyma is clear. Pleural spaces: No pneumothorax. No pleural effusion. Heart/Mediastinum: The cardiomediastinal silhouette is within normal limits. Bones/joints: Unremarkable. XR/XR chest 1V portable [id number] IMPRESSION: No acute cardiopulmonary abnormality.
[2021-12-17 04:57] VITALS: TEMP 35.9
[2021-12-17 04:59] LABS: Basophils % 0.4 %; Eosinophils # 0.2 10^3/uL (0.0-0.8); Eosinophils % 3.1 %; Hematocrit 44.7 % (37.0-47.0); Hemoglobin 15.2 g/dL (11.5-15.3); Lymphocytes # 2.4 10^3/uL (0.8-4.8); Lymphocytes % 33.3 %; Mean Corpuscular Volume 97.2 fl (81-99); Mean Platelet Volume 10.2 fL (7.4-10.4); Monocytes # 0.7 10^3/uL (0.2-0.9); Monocytes % 9.8 %; Neutrophils # 3.78 10^3/uL (1.8-7.7); Nucleated Red Blood Cells % 0 %; Platelet Count 273 10^3/cmm (130-400); Red Cell Distribution Width 12.3 % (12.1-15.1); White Blood Count 7.1 10^3/uL (4.0-10.0)
[2021-12-17 05:03] LABS: Glucose Point of Care 140 mg/dL (70-110)
[2021-12-17] MEDS: diphenhydrAMINE 50 mg/mL SDV 1mL 25 MG IVP (05:08)
[2021-12-17] MEDS: metoclopramide 5 mg/mL SDV 2 mL 10 MG IVP (05:08)
[2021-12-17] MEDS: ketorolac 30 mg/mL INJ 15 MG IVP (05:08)
[2021-12-17] MEDS: sodium chloride 0.9% 1,000 ML 999 ML IV (05:08)
[2021-12-17 05:29] LABS: Alanine Aminotransferase 18 U/L (0-33); Alkaline Phosphatase 104 U/L (35-105); Anion Gap 14.9 (5-19); Aspartate Amino Transferase 15 U/L (0-32); Blood Urea Nitrogen 15 mg/dL (6-20); Calcium 8.9 mg/dL (8.5-10.5); Carbon Dioxide 25 mmol/L (22-29); Chloride 103 mmol/L (98-107); Globulin 3.4 g/dL (1.3-4.6); Glomerular Filtration Rate 89.3 mL/min (90-130); Glucose 131 mg/dL (65-115); Osmolality Calculated 291 mOsm/kg (285-295); Potassium 3.9 mmol/L (3.5-5.1); Salicylate 0.4 mg/dL (3-10); Sodium 139 mmol/L (136-145); Thyroid Stimulating Hormone 19.56 uIU/mL (0.27-4.20); Total Bilirubin 0.2 mg/dL (0.15-1.2); Total Protein 7.4 g/dL (6.6-8.7)
[2021-12-17 05:33] LABS: Acetaminophen < 5.0 ug/mL (10-30); Alcohol Level < 10 mg/dL (0-10)
[2021-12-17 05:49] LABS: C Reactive Protein 3.1 mg/L (0.0-4.9)
[2021-12-17 05:53] VITALS: BP 173/89; PULSE 66; RESP 18; O2SAT 93
[2021-12-17 05:56] LABS: INR 0.83 (0.8-1.2)
[2021-12-17 05:58] LABS: Prolactin 71.73 ng/mL (4.8-23.3)
[2021-12-17 06:05] LABS: Urine Appearance Clear (CLEAR); Urine Color Yellow (Yellow); pH Urine 7 (5-7)
[2021-12-17 06:06] LABS: Add Urine Culture? No; Add Urine Microscopic? YES; Amphetamines Screen Urine Positive (Negative); Bacteria Urine TRACE /hpf; Barbiturates Screen Urine Negative (Negative); Benzodiazepines Screen Urine Negative (Negative); Bilirubin Urine Neg (Negative); Blood Urine Neg (Negative); Cocaine Screen Urine Negative (Negative); Glucose Urine UA Norm (Normal); Ketones Urine Negative (Negative); Leukocyte Esterase Urine Negative (Negative); Nitrate Urine Negative (Negative); Opiate Screen Urine Negative (Negative); PCP Screen Urine Negative (Negative); Protein Urine 1+ (Negative); THC Screen Urine Positive (Negative); Urobilinogen Urine Norm (Negative)
[2021-12-17 06:10] VITALS: BP 148/81; PULSE 74; RESP 17; O2SAT 94
--- NOTE | 2021-12-17 06:29 | PC.NURSE ---
[facility] here to transport patient to [facility]; report given and care turned over
[2021-12-17 06:35] LABS: Free T4 Free Thyroxine 1.25 ng/dL (0.82-1.77)
== END 2021-12-17 06:35 ==
PROVIDERS: Emergency Provider Emergency Medicine; PCP Family Medicine Adult Medicine
DX: R51.9 Headache, unspecified (principal); R56.9 Unspecified convulsions; I60.9 Nontraumatic subarachnoid hemorrhage, unspecified; J44.9 Chronic obstructive pulmonary disease, unspecified
CPT/HCPCS: 36416; 51702; 70450; 71045; 80053; 80306; 80307; 81001; 82962; 84146; 84439; 84443; 85025; 85610; 85730; 86140; 87040; 96374; 96375; 99285; J1200; J1885; J2765; J7030

== ENCOUNTER → 2022-01-16 08:16 | Outpatient (BNVA) | payer BC, MEDICAID, SELFPAY | PROVIDERS: PCP Family Medicine Adult Medicine; Visit Provider Family Medicine Adult Medicine | DX: E22.1 Hyperprolactinemia (principal); E03.9 Hypothyroidism, unspecified; I10 Essential (primary) hypertension | CPT/HCPCS: 80053; 84146; 84443 ==

== ENCOUNTER 2023-04-22 06:32 | Day surgery (SDC) | payer BC, MEDICAID, SELFPAY ==
--- NOTE | 2023-04-22 06:35 | W.PM.OPSFHP ---
Same Day Surgery H&P Indication for Procedure/HPI DATE OF PROCEDURE: April 22, 2023 CHIEF COMPLAINT/INDICATIONFOR SURGICAL PROCEDURE: need for screening colonoscopy PREOP DIAGNOSIS: colon cancer screening PLANNED PROCEDURE: Operation Date: 04/22/23 07:40 Proposed Procedures p Colonoscopy 70793,G0121,Z12.11(Not Applicable) - Julian Sheppard MD Medications/Allergies* Allergies/Adverse Reactions Allergy/AdvReac Type Severity Reaction Status Date / Time No Known Allergies Allergy Verified 04/20/23 08:55 Pertinent History/Comorbid Conditions* Medical History (Updated 04/08/23 @ 09:24 by Kyle Espinosa MD) Current smoker Elevated blood pressure reading in office with diagnosis of hypertension FH: throat cancer Bilateral hand numbness Perimenopausal vasomotor symptoms Well adult health check Anxiety about health Cannabis abuse Subarachnoid hemorrhage Hyperprolactinemia Hypertension History of COVID-19 Obesity (BMI 30-39.9) COPD (chronic obstructive pulmonary disease) with chronic bronchitis Hypothyroid Surgical History (Updated 03/29/19 @ 16:45 by BLAINE Arcos) History of delivery Family History (Updated 03/29/19 @ 15:53 by Jessica Jim LPN) Epilepsy Cancer Grandfather Grandmother Social History Quit status (tobacco/nicotine): considering quitting Alcohol intake: current Alcohol intake frequency: holidays/special occasions only Substance/Drug Use: never Lives independently: Yes Household members: spouse and children Marital status: Number of children: 2 Number of grandchildren: 3 Current occupational status: employed Current occupation: [employer] Do you think of yourself as: Straight/Heterosexual Current gender identity: Female Pertinent Exam Findings alert, oriented x 3 and clear to auscultation bilaterally Recommendations Surgery/Procedure today Coding Level of Care Code Acute Code for Chg Fwd
[2023-04-22 06:44] VITALS: BMI 32.7
[2023-04-22 06:49] LABS: OR HCG Qualitative Urine Negative (Negative)
[2023-04-22 06:51] VITALS: BP 98/81; PULSE 92; RESP 18; TEMP 36.1; O2SAT 96
--- NOTE | 2023-04-22 06:54 | P.ANESASSM_ITS ---
Pre-Anesthetic Assessment Height/Weight: Height 1.7 m Weight 94.801 kg Temp Pulse Resp BP Pulse Ox O2 Del Method 97.0 F L 92 18 98/81 96 Room Air 04/22/23 06:51 04/22/23 06:51 04/22/23 06:51 04/22/23 06:51 04/22/23 06:51 04/22/23 06:51 Preop Diagnosis: colon cancer screening Operation Date: 04/22/23 07:40 Proposed Procedures p Colonoscopy 20779,G0121,Z12.11(Not Applicable) - Julian Sheppard MD Was Beta Neel taken within 24 hours: N/A Was Clonidine taken within 24 hours: N/A Last intake: Intake Last Liquid Date 04/21/23 Last Liquid Time 20:00 Last Solid Date 04/20/23 Last Intake: 22:00 Social Tobacco 1 pk day pack(s) per day Exam alert, oriented x 3, clear to auscultation bilaterally and regular rate & rhythm Airway Submandibular: within normal limits Cervical ROM: within normal limits Mallampati: Class II History/ROS No significant history except as noted Pulmonary Chronic Obstructive Pulmonary Disease CV/HEM Hypertension None reported Hepatic None reported GI None reported Metabolic Morbid Obesity and Thyroid Disease [facility] None reported Neuropsych Cerebrovascular Accident Anesthetic Plan ASA status: 3 Anesthesia: MAC Risk of > 500 ml blood loss (7ml/kg in children): Yes, adequate IV access and fluids planned Medications/Allergies Home Medications Medication Instructions Recorded Confirmed Last Taken Type levothyroxine 150 mcg tablet 150 mcg PO DAILY Low thyroid 90 05/19/22 04/20/23 04/21/23 Rx (Euthyrox) days #90 tabs lisinopril 5 mg tablet 5 mg PO DAILY lisinopril #30 tabs 12/22/22 04/20/23 04/21/23 Rx Allergies Allergy/AdvReac Type Severity Reaction Status Date / Time No Known Allergies Allergy Verified 04/20/23 08:55 [facility] Anesthesia Medical History (Updated 04/08/23 @ 09:24 by Kyle Espinosa MD) Current smoker Elevated blood pressure reading in office with diagnosis of hypertension FH: throat cancer Bilateral hand numbness Perimenopausal vasomotor symptoms Well adult health check Anxiety about health Cannabis abuse Subarachnoid hemorrhage Hyperprolactinemia Hypertension History of COVID-19 Obesity (BMI 30-39.9) COPD (chronic obstructive pulmonary disease) with chronic bronchitis Hypothyroid Surgical History History of delivery Family History Grandfather Cancer Grandmother Cancer Other Epilepsy Social History Quit status (tobacco/nicotine): considering quitting Alcohol intake: current Alcohol intake frequency: holidays/special occasions only Substance/Drug Use: never Lives independently: Yes Household members: spouse and children Marital status: Number of children: 2 Number of grandchildren: 3 Current occupational status: employed Current occupation: [employer] Do you think of yourself as: Straight/Heterosexual Current gender identity: Female Female Reproductive History Para: 2 Spontaneous abortions: No Data Anesthesia Cardiac Studies: No Data to Display
[2023-04-22] MEDS: sodium chloride 0.9% 1,000 ML 30 ML IV (06:56)
[2023-04-22 07:56] VITALS: BP 123/91; PULSE 85; RESP 18; TEMP 36.2; O2SAT 100
[2023-04-22 08:10] VITALS: BP 117/65; PULSE 81; RESP 16; O2SAT 97
--- NOTE | 2023-04-22 13:15 | ANE.PACU2 ---
Inpatient post-anesthesia follow up: Airway intact: Yes Vital signs: Temperature 97.2 F Pulse Rate 81 Respiratory Rate 16 Blood Pressure 117/65 Pulse Oximetry 97 Oxygen Delivery Me thod Room Air Oxygen Flow Rate Fraction of Inspir ed Oxygen Hydration adequate: Yes Nausea and vomiting: No Pain level: 2 Mental status: Baseline
== END 2023-04-22 08:14 | disposition home or self-care (01) ==
PROVIDERS: Anesthesiology; PCP Family Medicine Adult Medicine; Visit Provider Surgery
PROC: 0DJD8ZZ Inspection of Lower Intestinal Tract, Via Natural or Artificial Opening Endoscopic (ICD-10-PCS; CPT 45378; principal; 2023-04-22 07:40)
DX: Z12.11 Encounter for screening for malignant neoplasm of colon (principal); Z85.89 Personal history of malignant neoplasm of other organs and systems; K57.30 Diverticulosis of large intestine without perforation or abscess without bleeding; K63.5 Polyp of colon; J44.9 Chronic obstructive pulmonary disease, unspecified; I10 Essential (primary) hypertension; E66.01 Morbid (severe) obesity due to excess calories; Z68.32 Body mass index [BMI] 32.0-32.9, adult; Z86.73 Personal history of transient ischemic attack (TIA), and cerebral infarction without residual deficits; F17.200 Nicotine dependence, unspecified, uncomplicated
CPT/HCPCS: 45380; 81025; 84703; 88305; J2704; J7030

== ENCOUNTER 2023-04-29 10:00 | Outpatient (CLI) | payer BC, MEDICAID, SELFPAY ==
--- NOTE | 2023-04-29 10:15 | CT_ITS ---
WS: [id number] LDCT LUNG CANCER SCREENING TECHNIQUE: Noncontrast CT of the chest with coronal and sagittal reformatted images. CLINICAL INFORMATION: former smoker COMPARISON: None. DLP: 89.41 mGy.cm DIvol: Mean CTDIvol: 2.00 (mGy) All CT scans at [facility] use at least one of these dose optimization techniques: automat ed exposure control; mA and/or kV adjustment per patient size (includes targeted exams where dose is matched to clinical indication); or iterative reconstruction. FINDINGS: Lungs are well aerated. No suspicious pulmonary parenchymal opacities. Aortic calcification. Normal caliber thoracic aorta. No mediastinal or hilar lymphadenopathy. No axil sihrin lymphadenopathy. Adrenal glands are normal. Mild thoracic kyphosis. Mild hypertrophic changes thoracic spine. IMPRESSION: CT/CT lung screening [id number] LUNG-RADS: 1-Negative FOLLOW UP: 12 Month: Continue annual screening with LDCT
== END 2023-04-29 10:01 | disposition home or self-care (01) ==
LOC: RAD 10:00
PROVIDERS: PCP Family Medicine Adult Medicine; Visit Provider Family Medicine Adult Medicine
DX: J44.9 Chronic obstructive pulmonary disease, unspecified (principal); Z87.891 Personal history of nicotine dependence
CPT/HCPCS: 71271

== ENCOUNTER 2024-02-08 14:05 | Outpatient (CLI) | payer BC, MEDICAID, SELFPAY ==
--- NOTE | 2024-02-08 14:15 | CT_ITS ---
WS: [id number] CT HEAD TECHNIQUE: Noncontrast and contrast-enhanced CT of the head. CLINICAL INFORMATION: frequent headaches and forgetful COMPARISON: 2021 DLP: 2206.[address] scans at [facility] use at least one of these dose optimization techniques: automated e xposure control; mA and/or kV adjustment per patient size (includes targeted exams where dose is matc hed to clinical indication); or iterative reconstruction. FINDINGS: Aneurysm coils along the anterior communicating artery. Aneurysm coils results in beam hardening tiffanie fact. No abnormal intracranial enhancement. No evidence of hemorrhage. Normal romo-white differentiat ion. Cerebellar tonsillar ectopia unchanged from previous. Normal fourth ventricle. Partial opacification of the ethmoid air cells. Opacification of the LEFT frontal sinuses and frontal ethmoidal recess. Mastoid air cells are well aerated. CT/CT head wo/w con [id number] IMPRESSION: 1. Prior aneurysm repair along the anterior communicating artery. 2. No abnormal intracranial enhancement. 3. Normal romo-white differentiation. No hemorrhage. 4. Cerebellar tonsillar ectopia with mild crowding of the foramen magnum uncha nged. Normal fourth ventricle. 5. LEFT frontal and ethmoid sinusitis.
[2024-02-08] MEDS: iohexol 350 mg/mL 500 mL Btl (per mL) IV (14:45)
== END 2024-02-08 14:06 | disposition home or self-care (01) ==
LOC: RAD 14:05
DX: I61.9 Nontraumatic intracerebral hemorrhage, unspecified (principal); Q04.8 Other specified congenital malformations of brain; J01.20 Acute ethmoidal sinusitis, unspecified; J01.10 Acute frontal sinusitis, unspecified
CPT/HCPCS: 70470

== ENCOUNTER 2024-08-16 13:23 | Emergency (ER) | payer BC, MEDICAID, SELFPAY ==
[2024-08-16 13:31] VITALS: BP 105/66; PULSE 100; RESP 16; TEMP 36.7; O2SAT 98
--- NOTE | 2024-08-16 14:52 | CT_ITS ---
WS: [id number] CT HEAD NONCONTRAST HISTORY: LUX, h/o aneurysm TECHNIQUE: Contiguous axial imaging performed through the brain. Bone and soft tissue windows. Sagittal and coronal reformats reviewed. All CT scans at [facility] use at least one of these dose optimization techniques: automated exposure control; mA and/or kV adjustment per patient size (includes targeted exams where dose is matched to clinical indication); or iterative reconstruction. DLP: 1066.78 mGy.cm COMPARISON: 02/08/2024 No acute intracranial hemorrhage, midline shift or mass effect. No atrophy or prior infarcts or herniation. Prior aneurysm clip noted near the expected location of the anterior communicating artery. No associated blood near the aneurysm clip. Also noted is very mild ectopia of the cerebellar tonsils. Ventricles: Normal size with no hydrocephalus. Paranasal sinuses: Bilateral mucoperiosteal thickening in the maxillary sinuses. Bilateral anterior ethmoid air cell disease. Mastoid air cells: Well pneumatized. Calvarium and scalp: Skull is intact with no soft tissue edema or swelling. CT/CT head wo con* [id number] IMPRESSION: 1. No acute intracranial hemorrhage or edema. 2. Prior aneurysm clipping anterior communicating artery aneurysm. 3. No significant volume loss or atrophy. 4. Maxillary and ethmoid air cell disease.
--- NOTE | 2024-08-16 14:54 | ED_ITS ---
HPI - Headache General: Chief Complaint: Headache Stated Complaint: headache Time Seen by Provider: 08/16/24 14:39 Source: patient Mode of arrival: ambulatory Limitations: no limitations History of Present Illness: 53yo female presents with significant ot her for evaluation of a headache that is behind her left eye. Patient reports she woke up with a headache this morning. States she did take 600 mg ibuprofen at approximately 0600 this morning, but it did not help. States about an hour ago she repeated her ibuprofen with no improvement. Patient states that she intermittently has light sensitivity. Reports that ibuprofen typically helps her headaches. States that she did have an aneurysm in 2021 that required repair. Patient denies fall, trauma, known injury, any other concerns at this time. Associated symptoms: Deny chest pain, fever(s) or vomiting Related Data Home Medications ?Medication ?Instructions ?Recorded ?Confirmed ibuprofen 200 mg tablet (Advil) 600 mg PO Q6H PRN Feve r Or Pain 08/16/24 08/16/24 Previous Rx's ?Medication ?Instructions ?Recorded levothyroxine 150 mcg tablet 150 mcg PO DAILY Low thyr oid #90 08/13/23 tabs lisinopril 5 mg tablet 5 mg PO DAILY hypertension # 90 tabs 06/15/24 amoxicillin 875 mg-potassium 1 tab PO BID #10 tabs 01/30 clavulanate 125 mg tablet promethazine 25 mg tablet 25 mg PO TID PRN nausea and 08/16/24 vomiting #20 tabs Allergies Allergy/AdvReac Type Severity Reaction Status Date / Time No Known Allergies Allergy Verified 08/16/24 13:36 Review of Systems Const: Denies: fever(s), chills or body aches Eyes: Denies: change in vision or blurry vision Card: Denies: chest pain Resp: Denies: dyspnea GI: Denies: vomiting Neuro: Reports: headache(s) PFSH ED PFSH: Medical History (Updated 08/16/24 @ 16:34 by BLAINE Palma) Tinea pedis of both feet Weight loss observed on examination Elevated glucose level Current smoker FH: throat cancer Bilateral hand numbness Perimenopausal vasomotor symptoms Anxiety about health Cannabis abuse Subarachnoid hemorrhage in 2022. Coil embolization placed. Hypertension Obesity (BMI 30-39.9) COPD (chronic obstructive pulmonary disease) with chronic bronchitis Hypothyroid Surgical History (Updated 02/15/24 @ 08:06 by Jade Ramirez NP) Status post coil embolization of cerebral aneurysm S/P colonoscopy with polypectomy 04/22/2023 Dr. Sheppard, diverticulosis and colon polyps History of delivery Family History Grandfather Cancer Grandmother Cancer Other Epilepsy Social History Smoking and tobacco/nicotine status: current every day tobacco/nicotine user cigarettes Packs smoked per day: 1 Quit status (tobacco/nicotine): considering quitting Alcohol intake: current Alcohol intake frequency: holidays/special occasions only Substance/Drug Use: never Lives independently: Yes Household members: spouse and children Marital status: Number of children: 2 Number of grandchildren: 3 Current occupational status: employed Current occupation: [employer] Do you think of yourself as: Straight/Heterosexual Current gender identity: Female Female Reproductive History: Para: 2 Spontaneous abortions: No Physical Exam Const: COMMON NORMALS: no acute distress, average body habitus, patient oriented x3, healthy appearing and alert GENERAL APPEARANCE: cooperative O RIENTATION/CONSCIOUSNESS: Yes awake OTHER: Patient is ambulatory to the exam room unassisted. She is sitting upright on the stretcher in no acute distress. She is able to give history with no difficulty. She is interactive with exam appropriately. Family is at bedside HENMT: COMMON NORMALS: normocephalic, atraumatic, external ears normal and TM's normal bilaterally HEAD & SCALP: normocephalic and atraumatic EXTERNAL EAR: Yes external ears normal TYMPANIC MEMBRANE: TM's normal bilaterally MOUTH: Normal oral and palatal mucosa present Eye: COMMON NORMALS: Equal, round and reactive pupils present, EOMs intact bilaterally and conjunctivae normal CONJUNCTIVA: Yes conjunctivae normal PUPIL: Yes Equal, round and reactive pupils present Neck/C-Spine: COMMON NORMALS: full ROM Chest: CHEST: Yes Symmetrical chest wall rise Resp: COMMON NORMALS: normal respiratory effort EFFORT & INSPECTION: Yes able to speak in complete sentences Extremity: COMMON NORMALS: full ROM NARRATIVE EXTREMITY EXAM: MAEW Neuro: COMMON NORMALS: patient oriented x3 and moves all extremities SENSORIUM/ORIENTATION: Yes alert COORDINATION/BALANCE: oawpwb-qf-qtbi test normal COORDINATION: litgvy-me-skyd test normal Psych: COMMON NORMALS: cooperative Course Vital Signs: Vital signs: Vital Signs Temperature 98.1 F 08/16/24 13:31 Pulse Rate 87 08/16/24 15:03 Respiratory Rate 16 08/16/24 15:03 Blood Pressure 104/66 08/16/24 15:03 Pulse Oximetry 96 08/16/24 15:03 Oxygen Delivery Me thod Room Air 08/16/24 13:31 MDM - Headache Medical Decision Making 53yo female presents with significant other for evaluation of a headache that is behind her left eye. Patient reports she woke up with a headache this morning that has not responded to two doses of 600 mg ibuprofen, which typically takes care of her headaches. Patient does have a history of an aneurysm in 2021. She denies fall, trauma, known injury, any other concerns at this time. Patient is nontoxic in appearance. Vital signs are stable. Will proceed with CT scan. Neurological exam is unremarkable at this time. No indication of intracranial hemorrhage noted on CT scan. Bilateral thickening of the maxillary sinuses as well as ethmoid air disease noted on the CT as well. Discussed findings with patient. Will proceed with prescription of promethazine for patient to take at home with ibuprofen and diphenhydramine for a home headache cocktail. Sedation precautions discussed. Will also proceed with Augmentin for the sinusitis which may be contributing to the headache. Recommend she increase her fluid intake and continue to monitor symptoms. Advised to follow-up with her doctor, call in a few days with an update of symptoms and to discuss a recheck. Return precautions provided. Patient and family state understanding and has no further questions or concerns at this time. Differential Diagnosis Likely migraine, subarachnoid hemorrhage, headache and sinusitis Lab Data Radiology Impressions Head CT 08/16/24 14:52 IMPRESSION: 1. No acute intracranial hemorrhage or edema. 2. Prior aneurysm clipping anterior communicating artery aneurysm. 3. No significant volume loss or atrophy. 4. Maxillary and ethmoid air cell disease. All radiology interpretation(s) finalized by discharge Discharge Plan Discharge Patient Disposition: Home Clinical Impression: Headache Qualifiers: Headache type: unspecified Headache chronicity pattern: acute headache Intractability: not intractable Qualified Code(s): R51.9 - Headache, unspecified Sinusitis Qualifiers: Sinusitis location: unspecified location Chronicity: unspecified Qualified Code(s): J32.9 - Chronic sinusitis, unspecified Condition: Stable Prescriptions: New amoxicillin-pot clavulanate 875-125 mg tablet 1 tab PO BID Qty: 10 0RF promethazine 25 mg tablet 25 mg PO TID PRN (Reason: nausea and vomiting) Qty: 20 0RF Rx Instructions: May also use for headaches No Action levothyroxine 150 mcg tablet 150 mcg PO DAILY Qty: 90 3RF lisinopril 5 mg tablet 5 mg PO DAILY Qty: 90 1RF ibuprofen [Advil] 200 mg Tablet 600 mg PO Q6H PRN (Reason: Fever Or Pain) Discharge Orders: Discharge ED (Routine); Ordered 08/16/24 Ordered By: Sigifredo Garcia Referrals: Jade Ramirez NP [Primary Care Provider, Family Practice] Discharge Diet: Usual diet Discharge Activity: Increase activity as tolerated Patient Instructions: Sinusitis (ED), Acute Headache (ED), Pain Management Activity Restrictions/Additional Instructions: A prescription of promethazine has been sent to your pharmacy to use in combination with ibuprofen and [id number] Benadryl when ibuprofen alone does not cover your headache. This combination of medications will make you sleepy. Be sure to increase your fluid intake while taking them as well Augmentin has been sent to the pharmacy due to appearance of sinusitis on the CT scan. This may be contributing to the headache. Please take the antibiotic to completion See provided handouts with information about headaches as well as sinusitis Follow-up with primary care, call Wednesday with an update of symptoms and to discuss a recheck Return to the emergency department if any rapid worsening symptoms and as needed. Print Language: Ukrainian Coding Level of Care Code ED Vocational Technical Education Director for James Roldan
[2024-08-16 15:03] VITALS: BP 104/66; PULSE 87; RESP 16; O2SAT 96
== END 2024-08-16 17:04 | disposition home or self-care (01) ==
PROVIDERS: Emergency Provider Nurse Practitioner
DX: R51.9 Headache, unspecified (principal); J32.9 Chronic sinusitis, unspecified; J44.9 Chronic obstructive pulmonary disease, unspecified; E03.9 Hypothyroidism, unspecified; I10 Essential (primary) hypertension; F17.210 Nicotine dependence, cigarettes, uncomplicated; Z86.79 Personal history of other diseases of the circulatory system; Z79.890 Hormone replacement therapy; Z79.899 Other long term (current) drug therapy
CPT/HCPCS: 70450; 99284

== ENCOUNTER 2024-09-04 09:09 | Inpatient (IN) | payer BC, MEDICAID, SELFPAY ==
[2024-09-04] VITALS (16 sets, daily range): BP systolic 112–181; BP diastolic 69–80; PULSE 93–110; RESP 16–20; TEMP 36.7–36.8; O2SAT 91–95; BMI 33.7
--- NOTE | 2024-09-04 09:17 | XR_ITS ---
WS: [id number] XR chest 1V portable [id number] REASON FOR EXAM: sob FINDINGS: The chest is unchanged compared to 12/17/2021. The heart and mediastinum are within normal limits. Calcified granulomatous disease bilaterally. No acute pulmonary parenchymal or pleural abnormality. Mild degenerative spondylosis in the mid and lower thoracic spine. XR/XR chest 1V portable [id number] IMPRESSION: No acute chest abnormality.
--- NOTE | 2024-09-04 09:23 | ECG_ITS ---
[facility] 2024[facility]04 Pat Name: Katerina Wilkinson Department: Room: 272 Gender: Female Performance Instructor: : 1970 Requested By: Eva Mckeon Order Number: [id number] Dario MD: Adalberto Olvera M.D. Measurements Intervals [place] Rate: 85 P: 73 WI: 165 QRS: 75 QRSD: 84 T: 67 QT: 342 QTc: 408 Interpretive Statements SINUS RHYTHM LOW QRS VOLTAGE IN PRECORDIAL LEADS [QRS DEFLECTION < 1.0 mV IN CHEST LEADS] Compared to ECG 08/05/2019 11:26:33 No significant changes Electronically Signed On 09-07-2024 09:09:23 CDT by Adalberto Olvera M.D. [email or web address]
--- NOTE | 2024-09-04 09:38 | ED_ITS ---
Documented by User: ZAIRA Walters 09/04/24 11:40 HPI - SOB/Dyspnea 2 General: Chief Complaint: Shortness of Breath/Dyspnea Stated Complaint: urgent care sent, sob, congestion Time Seen by Provider: 09/04/24 09:11 Source: patient and family () Mode of arrival: ambulatory Limitations: no limitations History of Present Illness: HPI Narrative: Patient is a 53-year-old female with history of COPD, HTN, thyroid disease who presents to the ED today after being sent by urgent care for shortness of breath. She states approximately 5 days ago she was having sinus symptoms including congestion, dry cough, rhinorrhea and was started on Augmentin by her PCP. She states around 3 AM this morning she woke up with increased shortness of breath and cough. She does have a history of COPD and gave herself a nebulizer at home. She states this did not help and she went to urgent care. Urgent care did another nebulizer treatment and it did not he help, so they sent her here for further evaluation. At some point she states she was instructed for a one time dose of 10mg Dexamethasone. Has been on Augmentin for treatment of sinusitis. She denies fevers, chest pain, heart palpitations, nausea/vomiting, abdominal pain, altered mental status, change in color of her extremities or lips, any swelling or redness in her lower extremities, or productive cough. She is an everyday smoker but stopped 4 days ago due to symptoms. MD elicited complaint: shortness of breath and cough Pertinent past history: COPD Onset (ago): day(s) Context: recent illness Timing: constant Severity: moderate Exacerbating factors: lying flat, coughing, smoke and deep breaths Relieving factors: bronchodilators and upright position Known history of: COPD Associated symptoms: Reports chest congestion, cough and orthopnea; Deny abdominal pain, chest pain, dizziness, extremity pain, fever(s), hemoptysis, lightheadedness, nausea, palpitations, syncope or vomiting Treatment prior to arrival: bronchodilator Related Data Home Medications ?Medication ?Instructions ?Recorded ?Confirmed ibuprofen 200 mg tablet (Advil) 600 mg PO Q6H PRN Feve r Or Pain 08/16/24 09/04/24 Previous Rx's ?Medication ?Instructions ?Recorded levothyroxine 150 mcg tablet 150 mcg PO DAILY Low thyr oid #90 08/13/23 tabs lisinopril 5 mg tablet 5 mg PO DAILY hypertension # 90 tabs 06/15/24 promethazine 25 mg tablet 25 mg PO TID PRN nausea and 08/16/24 vomiting #20 tabs amoxicillin 875 mg-potassium 1 tab PO BID #20 tabs clavulanate 125 mg tablet dexamethasone 2 mg tablet 10 mg (5 x 2 mg) PO DAILY 1 day #5 08/31/24 tabs Allergies Allergy/AdvReac Type Severity Reaction Status Date / Time No Known Allergies Allergy Verified 09/04/24 09:28 Review of Systems 2 Const: Denies: fever(s), chills, body aches, change in appetite, fatigue or malaise Eyes: Denies: change in vision or blurry vision ENMT: Reports: nasal congestion and sinus pain; Denies: throat pain, enlarged tonsils, odynophagia, hoarseness, swelling of lips/tongue, ear or mastoid pain, ear discharge or nasal discharge Card: Reports: dyspnea on exertion and orthopnea; Denies: chest pain, palpitations, irregular heart rhythm, edema, swelling of feet/ankles, lightheadedness, syncope, pre-syncope, leg pain with exertion or acrocyanosis Resp: Reports: dyspnea, non-productive cough, wheezing, pain on inspiration and chest congestion; Denies: hemoptysis GI: Denies: abdominal pain, nausea, vomiting, diarrhea or change in bowel habits Musc: Denies: neck pain, back pain, extremity pain, extremity swelling, joint pain, joint swelling or joint redness Skin/Breast: Denies: rash or pruritus Neuro: Denies: headache(s), numbness in extremities, weakness in extremities, lack of coordination, difficulty walking, dizziness or confusion PFSH ED 2 PFSH: Medical History COPD exacerbation Tinea pedis of both feet Weight loss observed on examination Elevated glucose level Current smoker FH: throat cancer Bilateral hand numbness Perimenopausal vasomotor symptoms Anxiety about health Cannabis abuse Subarachnoid hemorrhage in 2022. Coil embolization placed. Hypertension Obesity (BMI 30-39.9) COPD (chronic obstructive pulmonary disease) with chronic bronchitis Hypothyroid Surgical History Status post coil embolization of cerebral aneurysm S/P colonoscopy with polypectomy 04/22/2023 Dr. Sheppard, diverticulosis and colon polyps History of delivery Family History Grandfather Cancer Grandmother Cancer Other Epilepsy Social History Smoking and tobacco/nicotine status: former use of tobacco/nicotine Quit status (tobacco/nicotine): considering quitting Alcohol intake: current Alcohol intake frequency: holidays/special occasions only Substance/Drug Use: never Lives independently: Yes Household members: spouse and children Marital status: Number of children: 2 Number of grandchildren: 3 Current occupational status: employed Current occupation: [employer] Do you think of yourself as: Straight/Heterosexual Current gender identity: Female Female Reproductive History: Para: 2 Spontaneous abortions: No Physical Exam 2 Const: COMMON NORMALS: no acute distress, patient oriented x3, no limitations, alert and well nourished GENERAL APPEARANCE: in distress (mild respiratory) NUTRITIONAL APPEARANCE: overweight HENMT: COMMON NORMALS: normocephalic, external ears normal and Normal external nose present HEAD & SCALP: normocephalic FACE & SINUS: normal facial exam NOSE: Normal external nose present EXTERNAL EAR: Yes external ears normal MOUTH: Normal oral and palatal mucosa present THROAT: posterior oropharynx normal Eye: GENERAL EYE: appearance normal, both eyes and all related structures Neck/C-Spine: COMMON NORMALS: full ROM and no JVD Chest: COMMONS NORMALS: normal inspection of the chest CHEST: Yes Symmetrical chest wall rise Resp: EFFORT & INSPECTION: Yes symmetric chest movement, Yes tachypneic, Yes respiratory distress, Yes labored, No grunting, No stridor and No retractions AUSCULTATION: rhonchi and wheezes expiratory wheezes and throughout Cardio: COMMON NORMALS: no JVD and regular rhythm RATE: tachycardic (mild) RHYTHM: regular rhythm GI: COMMON NORMALS: Normal to inspection, nondistended, normoactive bowel sounds present Extremity: COMMON NORMALS: normal to inspection, full ROM, capillary refill normal, no clubbing, cyanosis or edema, no calf tenderness and no pedal edema GENERAL: Yes normal exam except as noted Neuro: COMMON NORMALS: patient oriented x3 SENSORIUM/ORIENTATION: Yes alert Course 2 Vital Signs: Vital signs: Vital Signs Temperature 98.0 F 09/04/24 09:19 Pulse Rate 107 H 09/04/24 12:39 Respiratory Rate 19 H 09/04/24 12:39 Blood Pressure 121/80 09/04/24 12:39 Pulse Oximetry 92 09/04/24 12:39 Oxygen Delivery Me thod Nasal Cannula 09/04/24 12:39 Oxygen Flow Rate 2 09/04/24 12:39 MDM - SOB/Dyspnea Medical Decision Making Patient has not gotten any improvement with outpatient treatment. While here in ED, she has received stacked (3) duo-neb treatments and IV solu-medrol without any relief. IV mag ordered. She is still tachycardic and borderline hypoxic at rest and oxygen does drop to 88% with ambulation. Will require hospitalization for COPD exacerbation. Differential Diagnosis Likely acute exacerbation of chronic obstructive airways disease Medical Records I reviewed the patient's medical records. Lab Data I reviewed the patient's lab results. 09/04/24 10:00 09/04/24 10:00 Labs/Radiology: Radiology Impressions Chest X-Ray 09/04/24 09:17 IMPRESSION: No acute chest abnormality. Laboratory Results WBC 4.52 10^3/uL (3.29-11.43) 09/04/24 10:00 RBC 4.51 10^6/uL (3.85-5.65) 09/04/24 10:00 Hgb 14.60 g/dL (11.27-16.99) 09/04/24 10:00 Hct 44.4 % (36-47) 09/04/24 10:00 MCV 98.4 fl (85-98) H 09/04/24 10:00 MCH 32.4 pg (27-33) 09/04/24 10:00 MCHC 32.9 g/dL (30-55) 09/04/24 10:00 RDW 11.9 % (12.1-15.1) L 09/04/24 10:00 Plt Count 217 10^3/cmm (157-399) 09/04/24 10:00 MPV 9.8 fL (7.4-10.4) 09/04/24 10:00 Neut % (Auto) 58.9 % 09/04/24 10:00 Lymph % (Auto) 27.4 % 09/04/24 10:00 [place] % (Auto) 10.0 % 09/04/24 10:00 Eos % (Auto) 3.1 % 09/04/24 10:00 Baso % (Auto) 0.4 % 09/04/24 10:00 Neut # (Auto) 2.66 10^3/uL (1.8-7.7) 09/04/24 10:00 Lymph # (Auto) 1.2 10^3/uL (0.8-4.8) 09/04/24 10:00 [place] # (Auto) 0.5 10^3/uL (0.2-0.9) 09/04/24 10:00 Eos # (Auto) 0.1 10^3/uL (0.0-0.8) 09/04/24 10:00 Baso # (Auto) 0.0 10^3/uL (0.0-0.1) 09/04/24 10:00 Nucleated RBC % (auto) 0 % 09/04/24 10:00 Nucleated RBCs # 0.0 /100WBC 09/04/24 10:00 Specimen Type Arterial 09/04/24 10:56 Sample Site Radial, right 09/04/24 10:56 ABG pH 7.42 (7.35-7.45) 09/04/24 10:56 ABG pCO2 38.1 mmHg (35-45) 09/04/24 10:56 ABG pO2 57.5 mmHg (80.0-100.0) L 09/04/24 10:56 ABG PO2/FiO2 Ratio 273 09/04/24 10:56 ABG HCO3 24.7 mmol/L (22-26) 09/04/24 10:56 ABG O2 Saturation 92.0 09/04/24 10:56 ABG Base Excess 0.4 mmol/L (-2.0-2.0) 09/04/24 10:56 Patricio Test Pos 09/04/24 10:56 A-a O2 Gradient 5.9 mmHg (5-10) 09/04/24 10:56 Hematocrit 45.4 % (37-47) 09/04/24 10:56 Hgb O2 Saturation 90.2 % (95-100) L 09/04/24 10:56 Carboxyhemoglobin 1.1 %THgb (0.4-20.1) 09/04/24 10:56 Methemoglobin 0.8 % (0.4-1.5) 09/04/24 10:56 Total Hemoglobin 14.8 g/dL (12-16) 09/04/24 10:56 Sodium 142.0 mmol/L (131-143) 09/04/24 10:56 Potassium 3.7 mmol/L (3.5-5.0) 09/04/24 10:56 Glucose 118.0 mg/dL (70-115) H 09/04/24 10:56 Ionized Calcium 1.2 mmol/L (1.1-1.4) 09/04/24 10:56 O2 Delivery Device Room air 09/04/24 10:56 FiO2 21.0 % 09/04/24 10:56 Welding Machine Operator Submerged Arc ID [place] 09/04/24 10:56 Sodium 139 mmol/L (136-145) 09/04/24 10:00 Potassium 4.2 mmol/L (3.5-5.1) 09/04/24 10:00 Chloride 103 mmol/L (98-107) 09/04/24 10:00 Carbon Dioxide 24 mmol/L (22-29) 09/04/24 10:00 Anion Gap 16.2 (5-19) 09/04/24 10:00 BUN 11 mg/dL (6-20) 09/04/24 10:00 Creatinine 0.7 mg/dL (0.5-0.9) 09/04/24 10:00 GFR Calculation 88.2 mL/min (90-130) L 09/04/24 10:00 Glucose 99 mg/dL (65-115) 09/04/24 10:00 Calculated Osmolality 287 mOsm/kg (285-295) 09/04/24 10:00 Calcium 9.1 mg/dL (8.5-10.5) 09/04/24 10:00 Total Bilirubin 0.3 mg/dL (0.15-1.2) 09/04/24 10:00 AST 18 U/L (0-32) 09/04/24 10:00 ALT 28 U/L (0-33) 09/04/24 10:00 Alkaline Phosphatase 93 U/L (35-105) 09/04/24 10:00 NT-Pro-B Natriuret Pep 58 pg/mL (0-125) 09/04/24 10:00 Total Protein 7.8 g/dL (6.6-8.7) 09/04/24 10:00 Albumin 4.1 g/dL (3.5-5.2) 09/04/24 10:00 Globulin 3.7 g/dL (1.3-4.6) 09/04/24 10:00 Procalcitonin 0.05 ng/mL (0-0.5) 09/04/24 10:00 Influenza A (PCR) Negative (Negative) 09/04/24 11:23 Influenza Type B (PCR) Negative (Negative) 09/04/24 11:23 RSV (PCR) Positive (Negative) A 09/04/24 11:23 SARS-CoV-2 (PCR) Negative (Negative) 09/04/24 11:23 All radiology interpretation(s) finalized by discharge Discharge Plan Discharge Patient Disposition: Placed in Observation Admit Provider: Ollie Hernandez Clinical Impression: Acute exacerbation of chronic obstructive pulmonary disease Coding Level of Care Code ED Insurance Agency Sales Manager for [employer] Documented by User: Lincoln Joseph DO 09/04/24 14:22 HPI - SOB/Dyspnea 2 General: Chief Complaint: Shortness of Breath/Dyspnea Stated Complaint: urgent care sent, sob, congestion Time Seen by Provider: 09/04/24 09:11 Related Data Home Medications ?Medication ?Instructions ?Recorded ?Confirmed ibuprofen 200 mg tablet (Advil) 600 mg PO Q6H PRN Feve r Or Pain 08/16/24 09/04/24 Previous Rx's ?Medication ?Instructions ?Recorded levothyroxine 150 mcg tablet 150 mcg PO DAILY Low thyr oid #90 08/13/23 tabs lisinopril 5 mg tablet 5 mg PO DAILY hypertension # 90 tabs 06/15/24 promethazine 25 mg tablet 25 mg PO TID PRN nausea and 08/16/24 vomiting #20 tabs amoxicillin 875 mg-potassium 1 tab PO BID #20 tabs clavulanate 125 mg tablet dexamethasone 2 mg tablet 10 mg (5 x 2 mg) PO DAILY 1 day #5 08/31/24 tabs Allergies Allergy/AdvReac Type Severity Reaction Status Date / Time No Known Allergies Allergy Verified 09/04/24 09:28 PFSH ED 2 PFSH: Medical History COPD exacerbation Tinea pedis of both feet Weight loss observed on examination Elevated glucose level Current smoker FH: throat cancer Bilateral hand numbness Perimenopausal vasomotor symptoms Anxiety about health Cannabis abuse Subarachnoid hemorrhage in 2022. Coil embolization placed. Hypertension Obesity (BMI 30-39.9) COPD (chronic obstructive pulmonary disease) with chronic bronchitis Hypothyroid Surgical History Status post coil embolization of cerebral aneurysm S/P colonoscopy with polypectomy 04/22/2023 Dr. Sheppard, diverticulosis and colon polyps History of delivery Family History Grandfather Cancer Grandmother Cancer Other Epilepsy Social History Smoking and tobacco/nicotine status: former use of tobacco/nicotine Quit status (tobacco/nicotine): considering quitting Alcohol intake: current Alcohol intake frequency: holidays/special occasions only Substance/Drug Use: never Lives independently: Yes Household members: spouse and children Marital status: Number of children: 2 Number of grandchildren: 3 Current occupational status: employed Current occupation: [employer] Do you think of yourself as: Straight/Heterosexual Current gender identity: Female Course 2 Vital Signs: Vital signs: Vital Signs Temperature 98.0 F 09/04/24 09:19 Pulse Rate 107 H 09/04/24 12:39 Respiratory Rate 19 H 09/04/24 12:39 Blood Pressure 121/80 09/04/24 12:39 Pulse Oximetry 92 09/04/24 12:39 Oxygen Delivery Me thod Nasal Cannula 09/04/24 12:39 Oxygen Flow Rate 2 09/04/24 12:39 MDM - SOB/Dyspnea Medical Decision Making Patient has not gotten any improvement with outpatient treatment. While here in ED, she has received stacked (3) duo-neb treatments and IV solu-medrol without any relief. IV mag ordered. She is still tachycardic and borderline hypoxic at rest and oxygen does drop to 88% with ambulation. Will require hospitalization for COPD exacerbation. Chart reviewed and patient discussed with midlevel. Agree with assessment and plan. Lab Data 09/04/24 10:00 09/04/24 10:00 Labs/Radiology: Radiology Impressions Chest X-Ray 09/04/24 09:17 IMPRESSION: No acute chest abnormality. Laboratory Results WBC 4.52 10^3/uL (3.29-11.43) 09/04/24 10:00 RBC 4.51 10^6/uL (3.85-5.65) 09/04/24 10:00 Hgb 14.60 g/dL (11.27-16.99) 09/04/24 10:00 Hct 44.4 % (36-47) 09/04/24 10:00 MCV 98.4 fl (85-98) H 09/04/24 10:00 MCH 32.4 pg (27-33) 09/04/24 10:00 MCHC 32.9 g/dL (30-55) 09/04/24 10:00 RDW 11.9 % (12.1-15.1) L 09/04/24 10:00 Plt Count 217 10^3/cmm (157-399) 09/04/24 10:00 MPV 9.8 fL (7.4-10.4) 09/04/24 10:00 Neut % (Auto) 58.9 % 09/04/24 10:00 Lymph % (Auto) 27.4 % 09/04/24 10:00 [place] % (Auto) 10.0 % 09/04/24 10:00 Eos % (Auto) 3.1 % 09/04/24 10:00 Baso % (Auto) 0.4 % 09/04/24 10:00 Neut # (Auto) 2.66 10^3/uL (1.8-7.7) 09/04/24 10:00 Lymph # (Auto) 1.2 10^3/uL (0.8-4.8) 09/04/24 10:00 [place] # (Auto) 0.5 10^3/uL (0.2-0.9) 09/04/24 10:00 Eos # (Auto) 0.1 10^3/uL (0.0-0.8) 09/04/24 10:00 Baso # (Auto) 0.0 10^3/uL (0.0-0.1) 09/04/24 10:00 Nucleated RBC % (auto) 0 % 09/04/24 10:00 Nucleated RBCs # 0.0 /100WBC 09/04/24 10:00 Specimen Type Arterial 09/04/24 10:56 Sample Site Radial, right 09/04/24 10:56 ABG pH 7.42 (7.35-7.45) 09/04/24 10:56 ABG pCO2 38.1 mmHg (35-45) 09/04/24 10:56 ABG pO2 57.5 mmHg (80.0-100.0) L 09/04/24 10:56 ABG PO2/FiO2 Ratio 273 09/04/24 10:56 ABG HCO3 24.7 mmol/L (22-26) 09/04/24 10:56 ABG O2 Saturation 92.0 09/04/24 10:56 ABG Base Excess 0.4 mmol/L (-2.0-2.0) 09/04/24 10:56 Patricio Test Pos 09/04/24 10:56 A-a O2 Gradient 5.9 mmHg (5-10) 09/04/24 10:56 Hematocrit 45.4 % (37-47) 09/04/24 10:56 Hgb O2 Saturation 90.2 % (95-100) L 09/04/24 10:56 Carboxyhemoglobin 1.1 %THgb (0.4-20.1) 09/04/24 10:56 Methemoglobin 0.8 % (0.4-1.5) 09/04/24 10:56 Total Hemoglobin 14.8 g/dL (12-16) 09/04/24 10:56 Sodium 142.0 mmol/L (131-143) 09/04/24 10:56 Potassium 3.7 mmol/L (3.5-5.0) 09/04/24 10:56 Glucose 118.0 mg/dL (70-115) H 09/04/24 10:56 Ionized Calcium 1.2 mmol/L (1.1-1.4) 09/04/24 10:56 O2 Delivery Device Room air 09/04/24 10:56 FiO2 21.0 % 09/04/24 10:56 Welding Machine Operator Submerged Arc ID Zafar 09/04/24 10:56 Sodium 139 mmol/L (136-145) 09/04/24 10:00 Potassium 4.2 mmol/L (3.5-5.1) 09/04/24 10:00 Chloride 103 mmol/L (98-107) 09/04/24 10:00 Carbon Dioxide 24 mmol/L (22-29) 09/04/24 10:00 Anion Gap 16.2 (5-19) 09/04/24 10:00 BUN 11 mg/dL (6-20) 09/04/24 10:00 Creatinine 0.7 mg/dL (0.5-0.9) 09/04/24 10:00 GFR Calculation 88.2 mL/min (90-130) L 09/04/24 10:00 Glucose 99 mg/dL (65-115) 09/04/24 10:00 Calculated Osmolality 287 mOsm/kg (285-295) 09/04/24 10:00 Calcium 9.1 mg/dL (8.5-10.5) 09/04/24 10:00 Total Bilirubin 0.3 mg/dL (0.15-1.2) 09/04/24 10:00 AST 18 U/L (0-32) 09/04/24 10:00 ALT 28 U/L (0-33) 09/04/24 10:00 Alkaline Phosphatase 93 U/L (35-105) 09/04/24 10:00 NT-Pro-B Natriuret Pep 58 pg/mL (0-125) 09/04/24 10:00 Total Protein 7.8 g/dL (6.6-8.7) 09/04/24 10:00 Albumin 4.1 g/dL (3.5-5.2) 09/04/24 10:00 Globulin 3.7 g/dL (1.3-4.6) 09/04/24 10:00 Procalcitonin 0.05 ng/mL (0-0.5) 09/04/24 10:00 Influenza A (PCR) Negative (Negative) 09/04/24 11:23 Influenza Type B (PCR) Negative (Negative) 09/04/24 11:23 RSV (PCR) Positive (Negative) A 09/04/24 11:23 SARS-CoV-2 (PCR) Negative (Negative) 09/04/24 11:23 Discharge Plan Discharge Patient Disposition: Placed in Observation Admit Provider: Ollie Hernandez Clinical Impression: Acute exacerbation of chronic obstructive pulmonary disease Coding Level of Care Code ED Insurance Agency Sales Manager for James Roldan
[2024-09-04] MEDS: methylPREDNISolone sod succ 125 mg/2 mL INJ IVP (10:11)
[2024-09-04 10:14] LABS: Hematocrit 44.4 % (36-47); Hemoglobin 14.60 g/dL (11.27-16.99); Mean Corpuscular HGB Conc 32.9 g/dL (30-55); Mean Corpuscular Hemoglobin 32.4 pg (27-33); Mean Corpuscular Volume 98.4 fl (85-98); Nucleated Red Blood Cells % 0 %; Platelet Count 217 10^3/cmm (157-399); Red Blood Count 4.51 10^6/uL (3.85-5.65); White Blood Count 4.52 10^3/uL (3.29-11.43)
[2024-09-04 10:45] LABS: NT Pro B Type Natriuretic Pept 58 pg/mL (0-125); Procalcitonin 0.05 ng/mL (0-0.5)
[2024-09-04 10:56] LABS: Alanine Aminotransferase 28 U/L (0-33); Albumin Level 4.1 g/dL (3.5-5.2); Alkaline Phosphatase 93 U/L (35-105); Anion Gap 16.2 (5-19); Aspartate Amino Transferase 18 U/L (0-32); Blood Urea Nitrogen 11 mg/dL (6-20); Calcium 9.1 mg/dL (8.5-10.5); Carbon Dioxide 24 mmol/L (22-29); Chloride 103 mmol/L (98-107); Creatinine Clr Calc Pharmacy 114.5737; Globulin 3.7 g/dL (1.3-4.6); Glucose 99 mg/dL (65-115); Osmolality Calculated 287 mOsm/kg (285-295); Potassium 4.2 mmol/L (3.5-5.1); Sodium 139 mmol/L (136-145); Total Protein 7.8 g/dL (6.6-8.7)
[2024-09-04 11:08] LABS: ABG PCO2 38.1 mmHg (35-45); ABG PH Result 7.42 (7.35-7.45); Alveolar-Arterial Oxygen Gradi 5.9 mmHg (5-10); Arterial Blood Gas Hematocrit 45.4 % (37-47); Blood Gas Allen Test Pos; Blood Gas Operator Identificat WALCI; Blood Gas Sample Site Radial, right; Blood Gas Sample Type Arterial; Carboxyhemoglobin 1.1 %THgb (0.4-20.1); Glucose Level-ABG 118.0 mg/dL (70-115); HCO3 ABG 24.7 mmol/L (22-26); Ionized Calcium Level - ABG 1.2 mmol/L (1.1-1.4); Methemoglobin 0.8 % (0.4-1.5); Oxygen Saturation ABG 92.0; PO2 ABG 57.5 mmHg (80.0-100.0); PO2 FiO2 Ratio Arterial Blood 273; Potassium Level - ABG 3.7 mmol/L (3.5-5.0); Sodium Level - ABG 142.0 mmol/L (131-143)
[2024-09-04] MEDS: magnesium sulfate premix 2 GM/50 ML PIGGYBACK IV (11:25)
[2024-09-04 12:15] LABS: SARS-CoV-2 PCR NEGATIVE (Negative)
[2024-09-04 12:22] LABS: Respiratory Syncytial Virus Ce POSITIVE (Negative)
[2024-09-04] MEDS: AZITHROMYCIN ADD-Vantage 500 MG in 0.9% NaCl ADD-Vantage 250 ML 250 MG IV (12:37)
[2024-09-04] MEDS: cefTRIAXone 1,000 mg SDV 1000 MG IVP (12:37)
--- NOTE | 2024-09-04 14:03 | PM.HP ---
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 Patient reports a week history of shortness of breath, cough, she has been to urgent care has been on rounds of antibiotics, steroid therapy but continues to have episodes of shortness of breath. She denies any fevers, no chills, has a cough, no nausea, no vomiting, no chest pain, no lower extremity edema Medications/Allergies Home Medications ?Medication ?Instructions ?Recorded ?Confirmed ?Last Taken ?Type levothyroxine 150 mcg tablet 150 mcg PO DAILY Low thyroid #90 08/13/23 09/04/24 09/03/24 Rx tabs lisinopril 5 mg tablet 5 mg PO DAILY hypertension #90 tabs 06/15/24 09/04/24 09/03/24 Rx ibuprofen 200 mg tablet (Advil) 600 mg PO Q6H PRN Fever Or Pain 08/16/24 09/04/24 08/16/24 12:00 History promethazine 25 mg tablet 25 mg PO TID PRN nausea and 08/16/24 09/04/24 Unknown Rx vomiting #20 tabs amoxicillin 875 mg-potassium 1 tab PO BID #20 tabs 08/31/24 09/04/24 09/03/24 Rx clavulanate 125 mg tablet dexamethasone 2 mg tablet 10 mg (5 x 2 mg) PO DAILY 1 day #5 08/31/24 09/04/24 08/31/24 Rx tabs Allergies Allergy/AdvReac Type Severity Reaction Status Date / Time No Known Allergies Allergy Verified 09/04/24 09:28 PFSH Acute PFSH: Medical History COPD exacerbation Tinea pedis of both feet Weight loss observed on examination Elevated glucose level Current smoker FH: throat cancer Bilateral hand numbness Perimenopausal vasomotor symptoms Anxiety about health Cannabis abuse Subarachnoid hemorrhage in 2022. Coil embolization placed. Hypertension Obesity (BMI 30-39.9) COPD (chronic obstructive pulmonary disease) with chronic bronchitis Hypothyroid Surgical History Status post coil embolization of cerebral aneurysm S/P colonoscopy with polypectomy 04/22/2023 Dr. Sheppard, diverticulosis and colon polyps History of delivery Family History Grandfather Cancer Grandmother Cancer Other Epilepsy Social History Smoking and tobacco/nicotine status: former use of tobacco/nicotine Quit status (tobacco/nicotine): considering quitting Alcohol intake: current Alcohol intake frequency: holidays/special occasions only Substance/Drug Use: never Lives independently: Yes Household members: spouse and children Marital status: Number of children: 2 Number of grandchildren: 3 Current occupational status: employed Current occupation: [employer] Do you think of yourself as: Straight/Heterosexual Current gender identity: Female Female Reproductive History: Para: 2 Spontaneous abortions: No Vitals/I&O/Wt Last Vital Signs Temp 98.0 F 09/04/24 09:19 Pulse 107 H 09/04/24 12:39 Resp 19 H 09/04/24 12:39 BP 121/80 09/04/24 12:39 Pulse Ox 92 09/04/24 12:39 O2 Del Method Nasal Cannula 09/04/24 12:39 O2 Flow Rate 2 09/04/24 12:39 09/03/24 09/04/24 09/04/24 22:59 06:59 14:59 Intake Total 300 / 300 Balance 300 / 300 Weight last 48 hrs Weight 98.43 kg Physical Exam Const: COMMON NORMALS: no acute distress and patient oriented x3 Eye: COMMON NORMALS: Equal, round and reactive pupils present Lymph: LYMPHATIC: no lymphadenopathy noted Resp: COMMON NORMALS: normal respiratory effort, No retractions and No use of accessory muscles AUSCULTATION: crackles Cardio: COMMON NORMALS: no JVD, regular rate, regular rhythm, S1 normal heart sound present and S2 normal heart sound present RATE: regular rate RHYTHM: regular rhythm HEART SOUNDS: S1 normal heart sound present and S2 normal heart sound present GI: COMMON NORMALS: Normal to inspection, nondistended, normoactive bowel sounds present, Soft to palpation and non-tender Extremity: COMMON NORMALS: no pedal edema Neuro: COMMON NORMALS: patient oriented x3, CN's II-XII intact bilaterally and moves all extremities Psych: COMMON NORMALS: mental status grossly normal Data 09/04/24 10:00 09/04/24 10:00 Micro: Microbiology 09/04/24 12:30 Blood Culture - Preliminary Blood SPECIMEN COLLECTED 09/04/24 12:32 Blood Culture - Preliminary Blood SPECIMEN COLLECTED A&P Assessment and plan (1) COPD exacerbation: (2) RSV bronchitis: (3) Secondary bacterial pneumonia: Plan Acute hypoxic respiratory failure - Multifactorial - RSV bronchitis - Acute exacerbation of COPD -Concerns for secondary bacterial pneumonia Plan -Will monitor respiratory status closely - Continue Solu-Medrol 40 mg IV every 8 hours - Rocephin - Azithromycin - DuoNeb - Budesonide - Full code - History of subarachnoid hemorrhage, with CVA, increased risk of bleeding, relative contraindication to anticoagulant therapy, start SCDs for now PDMP PDMP Reviewed: Not Reviewed Attestations Medical Necessity Statement*: Patient requires hospitalization for acute hypoxic respiratory failure multifactorial RSV bronchitis, acute COPD exacerbation Diagnoses COPD exacerbation J44.1 RSV bronchitis J20.5 Secondary bacterial pneumonia J15.9
[2024-09-04 14:36] LABS: Estmated Average Glucose 117; Hemoglobin A1C 5.7 % (4.0-6.0)
[2024-09-04 14:37] LABS: Procalcitonin 0.05 ng/mL (0-0.5)
[2024-09-04 15:59] LABS: Cholesterol 165 mg/dL (0-200); HDL Cholesterol 29 mg/dL (60-100); Thyroid Stimulating Hormone 4.71 uIU/mL (0.27-4.20); Triglycerides 200 mg/dL (0-150)
[2024-09-04] MEDS: pantoprazole 40 mg SDV IVP (16:04)
[2024-09-04 17:33] LABS: Glucose Urine UA Negative (Normal); Nitrate Urine Negative (Negative); Specific Gravity, Urine 1.028 (1.005-1.030)
[2024-09-04 17:35] LABS: Add Urine Microscopic? YES
--- NOTE | 2024-09-04 21:26 | PC.NURSE ---
bilat feet red and pt c/o it itches. has had this issue for some time and too embarrassed to address with doctor
[2024-09-05] VITALS (20 sets, daily range): BP systolic 112–144; BP diastolic 64–96; PULSE 84–103; RESP 14–19; TEMP 36.4–36.8; O2SAT 92–95
[2024-09-05 04:22] LABS: Hematocrit 41.3 % (36-47); Hemoglobin 13.50 g/dL (11.27-16.99); Mean Corpuscular HGB Conc 32.7 g/dL (30-55); Mean Corpuscular Hemoglobin 32.2 pg (27-33); Mean Corpuscular Volume 98.6 fl (85-98); Nucleated Red Blood Cells % 0 %; Platelet Count 205 10^3/cmm (157-399); Red Blood Count 4.19 10^6/uL (3.85-5.65); White Blood Count 5.58 10^3/uL (3.29-11.43)
[2024-09-05 04:46] LABS: Anion Gap 15.7 (5-19); Blood Urea Nitrogen 16 mg/dL (6-20); Calcium 8.8 mg/dL (8.5-10.5); Carbon Dioxide 24 mmol/L (22-29); Chloride 104 mmol/L (98-107); Creatinine Clr Calc Pharmacy 114.0796; Glucose 127 mg/dL (65-115); Osmolality Calculated 291 mOsm/kg (285-295); Potassium 4.7 mmol/L (3.5-5.1); Sodium 139 mmol/L (136-145)
[2024-09-05] MEDS: methylPREDNISolone sod succ 40 mg/mL INJ IVP ×3 (08:41→23:48)
--- NOTE | 2024-09-05 10:55 | PC.CHAP ---
Pastoral Care Encounter/Spiritual Assessment Type of Contact [] Declined tractor mechanic helper visit [] Patient/Family/Request visit [] Outpatient visit [] Follow-up visit [] Physician referral [] Code/Alert [] Routine visit [] Staff referral [] Actively dying [] Patient sleeping [] Family support [] [] Out of room [] Palliative care [] [] Receiving care in room [] Pre-surgical visit [] Trauma [] Long length of stay [] ICU visit [x] Other:Contact precautions. No visit. Relational/Emotional Strength [] Patient feels connected with others/family/visitors/staff [] Distress [] Loneliness/isolation [] Abandonment Spirituality of Patient [] Person of Ángela [] Attends Hoahaoism of their Ángela [] Believes in Prayer [] Reads Bible or Anabaptist materials [] There are Spiritual issues to be addressed Machine Bobbin Winder Interventions [] Prayer [] Active listening [] Non-anxious presence [] Spiritual/emotional support [] Crisis/trauma care [] Spiritual counseling [] Bereavement support [] Provided bereavement packet [] Provided Bible/devotional materials [] Provided toy/stuffed animal, coloring book to patient or family member [] Provided Communion [] Anointing/[place] [] Salvation [] Completed spiritual assessment [] Other: Impact on Illness or Injury [] Angry [] Fearful [] Anxious [] Often cries [] Exhaustion [] Unable to work [] Unable to attend anglican [] Unable to walk/stand [] Unable to read [] Unable to drive [] Unable to eat/drink [] Unable to sleep [] Unable to be with family [] Patient intubated [] Other: Summary Time spent with patient
[2024-09-05] MEDS: AZITHROMYCIN ADD-Vantage 500 MG in 0.9% NaCl ADD-Vantage 250 ML 250 MG IV (14:23)
[2024-09-05] MEDS: cefTRIAXone 1,000 mg SDV 1000 MG IVP (14:23)
--- NOTE | 2024-09-05 16:36 | PM.PN ---
Subjective Subjective: Patient was seen this morning, denies any fevers, no chills, no cough, no nausea, no vomiting continues to have wheezing Vitals/I&O/Wt Last Vital Signs Temp 97.7 F 09/05/24 12:25 Pulse 98 09/05/24 15:44 Resp 16 09/05/24 15:44 BP 130/86 09/05/24 12:25 Pulse Ox 93 09/05/24 15:44 O2 Del Method Nasal Cannula 09/05/24 15:44 O2 Flow Rate 3 09/05/24 15:44 09/05/24 09/05/24 09/05/24 06:59 14:59 22:59 Intake Total 240 / 1140 960 / 960 Balance 240 / 1140 960 / 960 Weight last 48 hrs Weight 97.522 kg Weight 97.607 kg Weight 98.43 kg Physical Exam Const: COMMON NORMALS: no acute distress and patient oriented x3 Resp: COMMON NORMALS: normal respiratory effort, No retractions and No use of accessory muscles AUSCULTATION: crackles and wheezes Cardio: COMMON NORMALS: regular rate, regular rhythm, S1 normal heart sound present and S2 normal heart sound present RATE: regular rate RHYTHM: regular rhythm HEART SOUNDS: S1 normal heart sound present and S2 normal heart sound present GI: COMMON NORMALS: Normal to inspection, nondistended, normoactive bowel sounds present and non-tender Extremity: COMMON NORMALS: no pedal edema Neuro: COMMON NORMALS: patient oriented x3 Psych: COMMON NORMALS: mental status grossly normal Data 09/05/24 04:14 09/05/24 04:14 Micro: Microbiology 09/04/24 12:32 Blood Culture - Preliminary Blood NEGATIVE TO DATE 09/04/24 12:30 Blood Culture - Preliminary Blood NEGATIVE TO DATE A&P Assessment and plan (1) COPD exacerbation: (2) RSV bronchitis: (3) Secondary bacterial pneumonia: Plan Acute hypoxic respiratory failure - Multifactorial - RSV bronchitis - Acute exacerbation of COPD -Concerns for secondary bacterial pneumonia Plan -Will monitor respiratory status closely - Continue Solu-Medrol 40 mg IV every 8 hours - Rocephin - Azithromycin - DuoNeb - Budesonide - Full code - History of subarachnoid hemorrhage, with CVA, increased risk of bleeding, relative contraindication to anticoagulant therapy, start SCDs for now PDMP PDMP Reviewed: [facility]*: Patient requires hospitalization for RSV bronchitis, pneumonia, COPD Diagnoses COPD exacerbation J44.1 RSV bronchitis J20.5 Secondary bacterial pneumonia J15.9
[2024-09-05] MEDS: pantoprazole 40 mg SDV IVP (18:05)
[2024-09-06] VITALS (12 sets, daily range): BP systolic 104–149; BP diastolic 63–78; PULSE 86–100; RESP 16–20; TEMP 36.7–36.9; O2SAT 90–97
[2024-09-06 05:33] LABS: Hematocrit 43.5 % (36-47); Hemoglobin 13.90 g/dL (11.27-16.99); Mean Corpuscular HGB Conc 32.0 g/dL (30-55); Mean Corpuscular Hemoglobin 32.3 pg (27-33); Mean Corpuscular Volume 100.9 fl (85-98); Nucleated Red Blood Cells % 0 %; Platelet Count 231 10^3/cmm (157-399); Red Blood Count 4.31 10^6/uL (3.85-5.65); White Blood Count 6.99 10^3/uL (3.29-11.43)
[2024-09-06 05:53] LABS: Anion Gap 17.6 (5-19); Blood Urea Nitrogen 16 mg/dL (6-20); Calcium 9.3 mg/dL (8.5-10.5); Carbon Dioxide 26 mmol/L (22-29); Chloride 101 mmol/L (98-107); Creatinine Clr Calc Pharmacy 116.5070; Glucose 152 mg/dL (65-115); Osmolality Calculated 294 mOsm/kg (285-295); Potassium 4.6 mmol/L (3.5-5.1); Sodium 140 mmol/L (136-145)
[2024-09-06] MEDS: methylPREDNISolone sod succ 40 mg/mL INJ IVP (07:53)
--- NOTE | 2024-09-06 12:26 | P.PN_ITS ---
Subjective 2 Subjective: Patient was seen this morning continues to have wheezing, cough, no fevers, no chills, no chest pain, no palpitations, discussed with patient that given her history of subarachnoid hemorrhage, I have held off on putting her Lovenox so she should monitor for risk of DVTs, if she develops calf pain or calf swelling continue that she should let us know, continue to be ambulatory Vitals/I&O/Wt Last Vital Signs Temp 98.2 F 09/06/24 11:42 Pulse 93 09/06/24 11:42 Resp 17 09/06/24 11:42 BP 104/66 09/06/24 11:42 Pulse Ox 91 09/06/24 11:42 O2 Del Method Room Air 09/06/24 11:42 O2 Flow Rate 2 09/06/24 11:23 09/05/24 09/06/24 09/06/24 22:59 06:59 14:59 Intake Total 610 / 1570 240 / 1810 360 / 360 Balance 610 / 1570 240 / 1810 360 / 360 Weight last 48 hrs Weight 101.65 kg Weight 97.522 kg Weight 97.607 kg Physical Exam 2 Const: COMMON NORMALS: no acute distress and patient oriented x3 Resp: COMMON NORMALS: normal respiratory effort, No retractions and No use of accessory muscles AUSCULTATION: wheezes Cardio: COMMON NORMALS: regular rate, regular rhythm, S1 normal heart sound present and S2 normal heart sound present RATE: regular rate RHYTHM: r egular rhythm HEART SOUNDS: S1 normal heart sound present and S2 normal heart sound present GI: COMMON NORMALS: Normal to inspection, nondistended, normoactive bowel sounds present and non-tender Extremity: COMMON NORMALS: no pedal edema Neuro: COMMON NORMALS: patient oriented x3 Psych: COMMON NORMALS: mental status grossly normal Data 09/06/24 04:32 09/06/24 04:32 Micro: Microbiology 09/04/24 17:20 Urine Culture - Preliminary Urine,Clean Catch 09/04/24 12:32 Blood Culture - Preliminary Blood NEGATIVE TO DATE 09/04/24 12:30 Blood Culture - Preliminary Blood NEGATIVE TO DATE A&P Assessment and plan (1) COPD exacerbation: (2) RSV bronchitis: (3) Secondary bacterial pneumonia: Plan Acute hypoxic respiratory failure - Multifactorial - RSV bronchitis - Acute exacerbation of COPD -Concerns for secondary bacterial pneumonia Plan -Will monitor respiratory status closely - Continue prednisone 40 mg p.o. daily - Rocephin - Azithromycin - DuoNeb - Budesonide - Full code - History of subarachnoid hemorrhage, with CVA, increased risk of bleeding, relative contraindication to anticoagulant therapy, start SCDs for now PDMP PDMP Reviewed: Not Reviewed Attestations 2 Medical Necessity Statement*: Patient requires hospitalization for acute hypoxic respiratory failure secondary COPD, RSV Diagnoses COPD exacerbation J44.1 RSV bronchitis J20.5 Secondary bacterial pneumonia J15.9
[2024-09-06] MEDS: cefTRIAXone 1,000 mg SDV 1000 MG IVP (13:46)
[2024-09-06] MEDS: AZITHROMYCIN ADD-Vantage 500 MG in 0.9% NaCl ADD-Vantage 250 ML 250 MG IV (13:46)
[2024-09-06] MEDS: pantoprazole 40 mg SDV IVP (13:49)
[2024-09-07] VITALS (9 sets, daily range): BP systolic 111–160; BP diastolic 66–68; PULSE 76–93; RESP 15–18; TEMP 36.8; O2SAT 94–96
[2024-09-07 05:58] LABS: Hematocrit 41.7 % (36-47); Hemoglobin 13.40 g/dL (11.27-16.99); Mean Corpuscular HGB Conc 32.1 g/dL (30-55); Mean Corpuscular Hemoglobin 31.9 pg (27-33); Mean Corpuscular Volume 99.3 fl (85-98); Nucleated Red Blood Cells % 0 %; Platelet Count 213 10^3/cmm (157-399); Red Blood Count 4.20 10^6/uL (3.85-5.65); White Blood Count 10.02 10^3/uL (3.29-11.43)
[2024-09-07 06:29] LABS: Anion Gap 15.0 (5-19); Blood Urea Nitrogen 19 mg/dL (6-20); Calcium 8.9 mg/dL (8.5-10.5); Carbon Dioxide 27 mmol/L (22-29); Chloride 105 mmol/L (98-107); Creatinine Clr Calc Pharmacy 116.2620; Glucose 96 mg/dL (65-115); Osmolality Calculated 298 mOsm/kg (285-295); Potassium 4.0 mmol/L (3.5-5.1); Sodium 143 mmol/L (136-145)
--- NOTE | 2024-09-07 10:46 | PC.NURSE ---
Discharge instructions provided to pt and her at this time. NO questions or concerns voiced. RX delivered to bedside by [facility]. Pt to private vehicle via wheelchair with all belongings.
--- NOTE | 2024-09-07 11:23 | P.DS_ITS ---
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 Patient reports a week history of shortness of breath, cough, she has been to urgent care has been on rounds of antibiotics, steroid therapy but continues to have episodes of shortness of breath. She denies any fevers, no chills, has a cough, no nausea, no vomiting, no chest pain, no lower extremity edema Patient was admitted to [facility] for acute hypoxic respiratory failure secondary to RSV bronchitis, COPD, concern for secondary bacterial pneumonia - She was managed with IV antibiotics, IV steroids, and clinically monitored - Overall she clinically improved - Did not require oxygen on discharge - Discharged on prednisone burst, oral antibiotics, albuterol, Advair - Follow-up with pulmonary as outpatient - Advised to face mask, hand wash, avoid large public gatherings - She was supposed to see her grand children in the next few weeks, I have advised her to not see her grandkids for at least 4 weeks, due to risk of exposure and infection and morbidity mortality associated Physical Exam Const: COMMON NORMALS: no acute distress and patient oriented x3 Resp: COMMON NORMALS: normal respiratory effort, No retractions, No use of accessory muscles and clear to auscultation bilaterally AUSCULTATION: clear to auscultation bilaterally Cardio: COMMON NORMALS: regular rate, regular rhythm, S1 normal heart sound present and S2 normal heart sound present RATE: regular rate RHYTHM: regular rhythm HEART SOUNDS: S1 normal heart sound present and S2 normal heart sound present GI: COMMON NORMALS: Normal to inspection, nondistended, normoactive bowel sounds present and non-tender Extremity: COMMON NORMALS: no pedal edema Neuro: COMMON NORMALS: patient oriented x3 Psych: COMMON NORMALS: mental status grossly normal Discharge Data Studies Completed and Pending Completed Studies During Hospitalization Category Date Time Status XR chest 1V portable [id number] Urgent Exams 09/04/24 09:17 Completed Pending at discharge Category Date Time Status Blood Culture Stat Lab 09/04/24 12:30 Results Radiology Impressions Chest X-Ray 09/04/24 09:17 IMPRESSION: No acute chest abnormality. Laboratory Results WBC 10.02 10^3/uL (3.29-11.43) 09/07/24 05:08 RBC 4.20 10^6/uL (3.85-5.65) 09/07/24 05:08 Hgb 13.40 g/dL (11.27-16.99) 09/07/24 05:08 Hct 41.7 % (36-47) 09/07/24 05:08 MCV 99.3 fl (85-98) H 09/07/24 05:08 MCH 31.9 pg (27-33) 09/07/24 05:08 MCHC 32.1 g/dL (30-55) 09/07/24 05:08 RDW 12.6 % (12.1-15.1) 09/07/24 05:08 Plt Count 213 10^3/cmm (157-399) 09/07/24 05:08 MPV 10.3 fL (7.4-10.4) 09/07/24 05:08 Neut % (Auto) 55.5 % 09/07/24 05:08 Lymph % (Auto) 35.8 % 09/07/24 05:08 Luna % (Auto) 7.4 % 09/07/24 05:08 Eos % (Auto) 0.1 % 09/07/24 05:08 Baso % (Auto) 0.3 % 09/07/24 05:08 Neut # (Auto) 5.56 10^3/uL (1.8-7.7) 09/07/24 05:08 Lymph # (Auto) 3.6 10^3/uL (0.8-4.8) 09/07/24 05:08 Luna # (Auto) 0.7 10^3/uL (0.2-0.9) 09/07/24 05:08 Eos # (Auto) 0.0 10^3/uL (0.0-0.8) 09/07/24 05:08 Baso # (Auto) 0.0 10^3/uL (0.0-0.1) 09/07/24 05:08 Nucleated RBC % (auto) 0 % 09/07/24 05:08 Nucleated RBCs # 0.0 /100WBC 09/07/24 05:08 Specimen Type Arterial 09/04/24 10:56 Sample Site Radial, right 09/04/24 10:56 ABG pH 7.42 (7.35-7.45) 09/04/24 10:56 ABG pCO2 38.1 mmHg (35-45) 09/04/24 10:56 ABG pO2 57.5 mmHg (80.0-100.0) L 09/04/24 10:56 ABG PO2/FiO2 Ratio 273 09/04/24 10:56 ABG HCO3 24.7 mmol/L (22-26) 09/04/24 10:56 ABG O2 Saturation 92.0 09/04/24 10:56 ABG Base Excess 0.4 mmol/L (-2.0-2.0) 09/04/24 10:56 Patricio Test Pos 09/04/24 10:56 A-a O2 Gradient 5.9 mmHg (5-10) 09/04/24 10:56 Hematocrit 45.4 % (37-47) 09/04/24 10:56 Hgb O2 Saturation 90.2 % (95-100) L 09/04/24 10:56 Carboxyhemoglobin 1.1 %THgb (0.4-20.1) 09/04/24 10:56 Methemoglobin 0.8 % (0.4-1.5) 09/04/24 10:56 Total Hemoglobin 14.8 g/dL (12-16) 09/04/24 10:56 Sodium 142.0 mmol/L (131-143) 09/04/24 10:56 Potassium 3.7 mmol/L (3.5-5.0) 09/04/24 10:56 Glucose 118.0 mg/dL (70-115) H 09/04/24 10:56 Ionized Calcium 1.2 mmol/L (1.1-1.4) 09/04/24 10:56 O2 Delivery Device Room air 09/04/24 10:56 FiO2 21.0 % 09/04/24 10:56 Physical Therapist Center Manager ID Zafar 09/04/24 10:56 Sodium 143 mmol/L (136-145) 09/07/24 05:08 Potassium 4.0 mmol/L (3.5-5.1) 09/07/24 05:08 Chloride 105 mmol/L (98-107) 09/07/24 05:08 Carbon Dioxide 27 mmol/L (22-29) 09/07/24 05:08 Anion Gap 15.0 (5-19) 09/07/24 05:08 BUN 19 mg/dL (6-20) 09/07/24 05:08 Creatinine 0.7 mg/dL (0.5-0.9) 09/07/24 05:08 GFR Calculation 88.2 mL/min (90-130) L 09/07/24 05:08 Glucose 96 mg/dL (65-115) 09/07/24 05:08 Estimat Average Glucose 117 09/04/24 10:00 Hemoglobin A1c 5.7 % (4.0-6.0) 09/04/24 10:00 Calculated Osmolality 298 mOsm/kg (285-295) H 09/07/24 05:08 Calcium 8.9 mg/dL (8.5-10.5) 09/07/24 05:08 Total Bilirubin 0.3 mg/dL (0.15-1.2) 09/04/24 10:00 AST 18 U/L (0-32) 09/04/24 10:00 ALT 28 U/L (0-33) 09/04/24 10:00 Alkaline Phosphatase 93 U/L (35-105) 09/04/24 10:00 NT-Pro-B Natriuret Pep 58 pg/mL (0-125) 09/04/24 10:00 Total Protein 7.8 g/dL (6.6-8.7) 09/04/24 10:00 Albumin 4.1 g/dL (3.5-5.2) 09/04/24 10:00 Globulin 3.7 g/dL (1.3-4.6) 09/04/24 10:00 Triglycerides 200 mg/dL (0-150) H 09/04/24 10:00 Cholesterol 165 mg/dL (0-200) 09/04/24 10:00 LDL Cholesterol, Calc 96 mg/dL (50-129) 09/04/24 10:00 HDL Cholesterol 29 mg/dL (60-100) L 09/04/24 10:00 LDL/HDL Ratio 3.31 RATIO (0.00-3.22) H 09/04/24 10:00 Cholesterol/HDL Ratio 5.69 mg/dL (0.0-4.40) H 09/04/24 10:00 Procalcitonin 0.05 ng/mL (0-0.5) 09/04/24 10:00 Procalcitonin 0.05 ng/mL (0-0.5) 09/04/24 10:00 TSH 4.71 uIU/mL (0.27-4.20) H 09/04/24 10:00 Ser , Semi-Qnt 3.19 mIU/mL 09/07/24 05:08 Urine Color Yellow (Yellow) 09/04/24 17:20 Urine Appearance Clear (CLEAR) 09/04/24 17:20 Urine pH 5.5 (5-7) 09/04/24 17:20 Ur Specific [place] 1.028 (1.005-1.030) 09/04/24 17:20 Urine Protein Trace (Negative) A 09/04/24 17:20 Urine Glucose (UA) Negative (Normal) 09/04/24 17:20 Urine Ketones Negative (Negative) 09/04/24 17:20 Urine Blood 3+ (Negative) A 09/04/24 17:20 Urine Nitrate Negative (Negative) 09/04/24 17:20 Urine Bilirubin Negative (Negative) 09/04/24 17:20 Urine Urobilinogen 1.0 mg/dL (Negative) 09/04/24 17:20 Ur Leukocyte Esterase Negative (Negative) 09/04/24 17:20 Urine RBC 11-20 /hpf (0-2) H 09/04/24 17:20 Urine WBC 6-10 /hpf (0-5) 09/04/24 17:20 Ur Squamous Epith Cells 6-10 /hpf (0-5) 09/04/24 17:20 Amorphous Sediment Not Reportable 09/04/24 17:20 Urine Bacteria None seen /hpf (NONE) 09/04/24 17:20 Hyaline Casts 0.40 /lpf 09/04/24 17:20 Influenza A (PCR) Negative (Negative) 09/04/24 11:23 Influenza Type B (PCR) Negative (Negative) 09/04/24 11:23 RSV (PCR) Positive (Negative) A 09/04/24 11:23 SARS-CoV-2 (PCR) Negative (Negative) 09/04/24 11:23 Vitals Last Vital Signs Temp 98.3 F 09/07/24 10:12 Pulse 84 09/07/24 10:12 Resp 18 09/07/24 10:12 BP 160/66 09/07/24 10:12 Pulse Ox 94 09/07/24 10:12 O2 Del Method Room Air 09/07/24 08:04 O2 Flow Rate 0 09/07/24 07:10 Discharge Plan Discharge Patient Disposition: Home Condition: Stable Prescriptions: New prednisone 20 mg Tablet 40 mg PO DAILY 5 Days Qty: 10 0RF amoxicillin-pot clavulanate 875-125 mg tablet 1 tab PO BID 5 Days Qty: 10 0RF albuterol sulfate [Ventolin HFA] 90 mcg/actuation HFA aerosol inhaler 1 inh inhalation Q6H PRN (Reason: shortness of breath or wheezing) Qty: 8.5 0RF fluticasone propion-salmeterol [Advair Diskus] 100-50 mcg/dose blister with device 1 inh inhalation BID 30 Days Qty: 60 0RF Continued levothyroxine 150 mcg tablet 150 mcg PO DAILY Qty: 90 3RF lisinopril 5 mg tablet 5 mg PO DAILY Qty: 90 1RF promethazine 25 mg tablet 25 mg PO TID PRN (Reason: nausea and vomiting) Qty: 20 0RF Rx Instructions: May also use for headaches Discontinued amoxicillin-pot clavulanate 875-125 mg tablet 1 tab PO BID Qty: 20 0RF dexamethasone 2 mg tablet 10 mg PO DAILY 1 Days Qty: 5 0RF Rx Instructions: take all at same time today ibuprofen [Advil] 200 mg Tablet 600 mg PO Q6H PRN (Reason: Fever Or Pain) Discharge Orders: Discharge Order (Routine); Ordered 09/07/24 Ordered By: Ollie Hernandez Referrals: Jade Ramirez NP [Primary Care Provider, Family Practice] - 09/14/24 10:30 am Josephine Nino MD [Physician, Pulmonology] - 1-3 days Referral Note: We have notified your physician's clinic of the need for a follow-up appointment to be scheduled. If you have not heard from them within the next 2 business days, please call them directly. Discharge Diet: Cardiac Discharge Activity: Resume usual activity Patient Instructions: Prednisone (By mouth), Amoxicillin (By mouth), RSV (Respiratory Syncytial Virus) Vaccine for Adults (GEN), COPD Stoplight, Opioid Safety, Pain Management, Patient Portal & [facility] Instructions Activity Restrictions/Additional Instructions: - Please hydrate well, - Continue to wear a facemask, hand wash - Please follow-up with primary care provider 1 week - Please follow-up with pulmonary Discharge Attestations Time Spent in Discharge Care*: greater than 30 min Quality Metrics Clinical Quality Measures [ No reported AMI, CVA or VTE this stay] Coding Level of Care Code 32776 Total time (in minutes) for Discharge: 45 Diagnoses COPD exacerbation J44.1 RSV bronchitis J20.5 Secondary bacterial pneumonia J15.9
== END 2024-09-07 10:46 | disposition home or self-care (01) | DRG 189 ==
LOC: ER 11:11 → MEDSURG 09-05 14:44 → ER IP 09-05 14:44
PROVIDERS: Admitting Provider Family Medicine; Emergency Provider Physician Assistant; Visit Provider Family Medicine
DX: J96.01 Acute respiratory failure with hypoxia (principal); J15.9 Unspecified bacterial pneumonia; J44.1 Chronic obstructive pulmonary disease with (acute) exacerbation; J44.0 Chronic obstructive pulmonary disease with (acute) lower respiratory infection; J20.5 Acute bronchitis due to respiratory syncytial virus; I10 Essential (primary) hypertension; E03.9 Hypothyroidism, unspecified; Z86.73 Personal history of transient ischemic attack (TIA), and cerebral infarction without residual deficits; Z87.891 Personal history of nicotine dependence
CPT/HCPCS: 36415; 36600; 71045; 80048; 80051; 80053; 80061; 81001; 82330; 82805; 83036; 83880; 84145; 84443; 84702; 85025; 87040; 87086; 87637; 93005; 94640; 94760; J0456; J0696; J2470; J2919; J3475; J7050; J7512; J7626; J9999